=== PATIENT | female | born 1965 | race Caucasian/White ===

== ENCOUNTER → 2017-04-01 11:06 | Outpatient (CLI) | payer OTHER, SELFPAY ==
--- NOTE | 2017-04-01 11:09 | HPBI_ITS ---
MAMMOGRAPHY - BILATERAL SCREENING REASON FOR EXAM: Female, 51 years old. Routine annual screening examination. PERTINENT HISTORY: Non-contributory. TECHNIQUE: Digital bilateral breast frantz (3D mammographic acquisition) in the CC and MLO projections. 2-D mediolateral oblique (MLO) and craniocaudad (CC) views of both breasts were obtained. CAD: Full Field Digital Mammography with Computer Added Detection was performed. COMPARISON: Comparison is made with prior examination dated October 29, 2007. FINDINGS: Breast Composition: There are scattered areas of fibroglandular density. There are no dominant masses or suspicious calcifications. Stable bilateral benign appearing axillary lymph nodes. No other significant abnormalities are identified. There has been no significant change since the prior study. HPBI/SCREENING MAMM (CAD), BILAT IMPRESSION: Stable bilateral screening mammogram. Yearly follow-up mammogram recommended. (A) ASSESSMENT CATEGORY: BIRADS Category 2: Benign. A letter regarding these results will be sent to the patient by the facility within 30 days. Approximately 10% of breast cancers are not detected by mammography. A normal mammogram should not delay biopsy of a clinically suspicious abnormality. [id number] Electronically Signed: Ephraim Estrada MD at 12:37 EST Tel [phone], Service support ,
== END ==
PROVIDERS: Family Provider Family Medicine; PCP Family Medicine; Visit Provider Family Medicine
DX: Z12.31 Encounter for screening mammogram for malignant neoplasm of breast (principal)
CPT/HCPCS: 77063; 77067

== ENCOUNTER → 2017-08-01 15:48 | Outpatient (CLI) | payer OTHER, SELFPAY | PROVIDERS: Visit Provider Family Medicine | DX: J02.9 Acute pharyngitis, unspecified (principal) | CPT/HCPCS: 87070 ==

== ENCOUNTER → 2017-10-30 09:54 | Outpatient (CLI) | payer OTHER, SELFPAY ==
[2017-10-30 12:29] LABS: AST(SGOT) 15 U/L (15-37); Alanine Aminotransfer ALT/SGPT 25 U/L (13-56); Albumin, Serum 3.7 g/dL (3.2-5.0); Alkaline Phosphatase 94 U/L (45-117); Bilirubin, Direct 0.15 mg/dL (0.00-0.30); Cholesterol 152 mg/dL (200); Globulin 3.5 g/dL (2.2-4.2); High Density Lipoprotein 62 mg/dL; Protein, Total 7.2 g/dL (6.4-8.2); Triglycerides 112 mg/dL; Very Low Density Lipoprotein 22 mg/dL (5-40)
== END ==
PROVIDERS: Family Provider Family Medicine; PCP Family Medicine; Visit Provider Internal Medicine Cardiovascular Disease
DX: E78.5 Hyperlipidemia, unspecified (principal)
CPT/HCPCS: 36415; 80061; 80076

== ENCOUNTER → 2018-04-16 10:29 | Outpatient (CLI) | payer OTHER, SELFPAY ==
[2018-04-10 13:25] VITALS: BMI 32.6
[2018-04-16 13:05] LABS: AST(SGOT) 19 U/L (15-37); Alanine Aminotransfer ALT/SGPT 29 U/L (13-56); Albumin, Serum 3.7 g/dL (3.2-5.0); Alkaline Phosphatase 105 U/L (45-117); Bilirubin, Direct 0.13 mg/dL (0.00-0.30); Cholesterol 169 mg/dL (200); Globulin 3.4 g/dL (2.2-4.2); High Density Lipoprotein 70 mg/dL; Protein, Total 7.1 g/dL (6.4-8.2); Triglycerides 118 mg/dL; Very Low Density Lipoprotein 24 mg/dL (5-40)
== END ==
PROVIDERS: Family Provider Family Medicine; PCP Family Medicine; Referring Provider Internal Medicine Cardiovascular Disease; Visit Provider Internal Medicine Cardiovascular Disease
DX: E78.5 Hyperlipidemia, unspecified (principal)
CPT/HCPCS: 36415; 80061; 80076

== ENCOUNTER → 2018-08-21 | Outpatient (CLI) | payer OTHER, SELFPAY ==
[2018-04-10 13:25] VITALS: BMI 32.6
[2018-08-21 12:14] LABS: Absolute Lymphocyte Count 1.39 X10^3/ul (0.83-4.51); Absolute Neutrophil Count 2.6 X10^3/uL (2.0-7.7); Basophil# 0.02 X10^3/uL; Basophil% 0.4 % (0-1); Eosinophils% 2.2 % (0-5); Hemoglobin 12.7 g/dl (12.0-15.0); Lymphocyte # 1.39 X10^3/ul (4.0); Lymphocyte % 30.3 % (19-41); Mean Corp Hgb Conc 32.6 g/gl (32-36); Mean Corpuscular Hgb 28.9 pg (27.0-32.0); Mean Corpuscular Volume 88.8 fL (81-99); Mean Platelet Vol. 10.8 fl (6.2-12.0); Monocyte# 0.45 X10^3/uL; Monocyte% 9.8 % (0-10); Neutrophil # 2.62 X10^3/uL (2.7-7.7); Neutrophil % 57.3 % (47-70); Platelet Count 280 K/mm3 (150-450); RBC Distribution Width CV 13.2 % (11.6-14.6); RBC Distribution Width SD 42.5 fl (35.1-43.9); Red Blood Count 4.39 M/mm3 (4.2-5.4); White Blood Count 4.6 K/mm3 (4.4-11.0)
[2018-08-21 12:22] LABS: AST(SGOT) 20 U/L (15-37); Alanine Aminotransfer ALT/SGPT 25 U/L (13-56); Albumin, Serum 3.4 g/dL (3.2-5.0); Alkaline Phosphatase 98 U/L (45-117); Anion Gap 8 (5-15); BUN 11 mg/dL (7-18); BUN/Creat Ratio 13.9 RATIO (10-20); Bilirubin, Direct 0.17 mg/dL (0.00-0.30); Calcium,Total 8.9 mg/dL (8.5-10.1); Chloride 111 mmol/L (98-107); Cholesterol 158 mg/dL (200); Creatinine, Serum 0.79 mg/dL (0.55-1.02); EST Glomerular Filtration Rate 80 mL/min (>60); Est Glom Filt Rate - Afr Amer 97 mL/min (>60); Globulin 3.3 g/dL (2.2-4.2); Glucose 92 mg/dL (74-106); High Density Lipoprotein 72 mg/dL; Potassium 3.9 mmol/L (3.5-5.1); Protein, Total 6.7 g/dL (6.4-8.2); Sodium Level 145 mmol/L (136-145); Triglycerides 103 mg/dL; Very Low Density Lipoprotein 21 mg/dL (5-40)
[2018-08-21 12:31] LABS: POSITIVE COUNT NO; POSITIVE DIFFERENTIAL NO; POSITIVE MORPHOLOGY NO
== END | disposition home or self-care (01) ==
LOC: MTLAB 10:30
PROVIDERS: Family Provider Family Medicine; PCP Family Medicine; Referring Provider Family Medicine; Visit Provider Family Medicine
DX: I25.10 Atherosclerotic heart disease of native coronary artery without angina pectoris (principal); E78.5 Hyperlipidemia, unspecified
CPT/HCPCS: 36415; 80053; 80061; 82248; 85025

== ENCOUNTER → 2018-08-26 | Outpatient (CLI) | payer OTHER, SELFPAY ==
[2018-04-10 13:25] VITALS: BMI 32.6
[2018-08-26 13:01] LABS: Vitamin B12 687 pg/mL (211-911); Vitamin D,25 Hydroxy 19.2 ng/mL (29.95-100.01)
[2018-08-26 13:16] LABS: CPK Total, Creatine Kinase 332 U/L (26-192); Ferritin 27 ng/mL (8-252); Magnesium 2.3 mg/dL (1.6-2.6); Thyroid Stim Hormone (TSH) 1.14 uIU/mL (0.358-3.74)
== END | disposition home or self-care (01) ==
LOC: MFPLAB 10:32
PROVIDERS: Family Provider Family Medicine; PCP Family Medicine; Visit Provider Family Medicine
DX: R25.2 Cramp and spasm (principal); R53.83 Other fatigue
CPT/HCPCS: 36415; 82306; 82550; 82607; 82728; 83735; 84443

== ENCOUNTER → 2018-09-15 | Outpatient (CLI) | payer OTHER, SELFPAY ==
[2018-04-10 13:25] VITALS: BMI 32.6
[2018-09-15 11:28] LABS: ALB/GLOB Ratio 1.1 RATIO (0.9-2.4); AST(SGOT) 27 U/L (15-37); Alanine Aminotransfer ALT/SGPT 45 U/L (13-56); Albumin, Serum 3.5 g/dL (3.2-5.0); Alkaline Phosphatase 107 U/L (45-117); Anion Gap 6 (5-15); BUN 13 mg/dL (7-18); BUN/Creat Ratio 14.3 RATIO (10-20); Calcium,Total 9.1 mg/dL (8.5-10.1); Chloride 110 mmol/L (98-107); Cholesterol 262 mg/dL (200); Creatinine, Serum 0.91 mg/dL (0.55-1.02); EST Glomerular Filtration Rate 68 mL/min (>60); Est Glom Filt Rate - Afr Amer 83 mL/min (>60); Globulin 3.2 g/dL (2.2-4.2); Glucose 91 mg/dL (74-106); High Density Lipoprotein 61 mg/dL; Potassium 3.9 mmol/L (3.5-5.1); Protein, Total 6.7 g/dL (6.4-8.2); Sodium Level 144 mmol/L (136-145); Triglycerides 159 mg/dL; Very Low Density Lipoprotein 32 mg/dL (5-40)
== END | disposition home or self-care (01) ==
LOC: MTLAB 08:52
PROVIDERS: Family Medicine
DX: E78.5 Hyperlipidemia, unspecified (principal)
CPT/HCPCS: 36415; 80053; 80061

== ENCOUNTER → 2018-09-30 | Outpatient (CLI) | payer OTHER, SELFPAY ==
[2018-04-10 13:25] VITALS: BMI 32.6
[2018-09-30 12:26] LABS: CPK Total, Creatine Kinase 214 U/L (26-192)
== END | disposition home or self-care (01) ==
PROVIDERS: Family Medicine
DX: R74.8 Abnormal levels of other serum enzymes (principal)
CPT/HCPCS: 36415; 82550

== ENCOUNTER → 2018-11-29 10:36 | Outpatient (CLI) | payer OTHER, SELFPAY ==
[2018-11-20 11:11] VITALS: BMI 34.0
[2018-11-29 11:49] LABS: AST(SGOT) 16 U/L (15-37); Alanine Aminotransfer ALT/SGPT 22 U/L (13-56); Albumin, Serum 3.5 g/dL (3.2-5.0); Alkaline Phosphatase 102 U/L (45-117); Bilirubin, Direct 0.13 mg/dL (0.00-0.30); Cholesterol 183 mg/dL (200); Globulin 3.5 g/dL (2.2-4.2); High Density Lipoprotein 64 mg/dL; Triglycerides 164 mg/dL; Very Low Density Lipoprotein 33 mg/dL (5-40)
== END ==
PROVIDERS: Family Provider Family Medicine; PCP Family Medicine; Referring Provider Internal Medicine Cardiovascular Disease; Visit Provider Internal Medicine Cardiovascular Disease
DX: I25.10 Atherosclerotic heart disease of native coronary artery without angina pectoris (principal); E78.5 Hyperlipidemia, unspecified
CPT/HCPCS: 36415; 80061; 80076

== ENCOUNTER → 2019-06-05 08:03 | Outpatient (CLI) | payer OTHER, SELFPAY ==
[2019-06-04 09:30] VITALS: BMI 32.1
[2019-06-05 09:01] LABS: AST(SGOT) 19 U/L (15-37); Alanine Aminotransfer ALT/SGPT 25 U/L (13-56); Albumin, Serum 3.4 g/dL (3.2-5.0); Alkaline Phosphatase 84 U/L (45-117); Bilirubin, Direct 0.18 mg/dL (0.00-0.30); Cholesterol 187 mg/dL (200); Globulin 3.1 g/dL (2.2-4.2); High Density Lipoprotein 61 mg/dL; Protein, Total 6.5 g/dL (6.4-8.2); Triglycerides 135 mg/dL; Very Low Density Lipoprotein 27 mg/dL (5-40)
== END ==
PROVIDERS: PCP Family Medicine; Referring Provider Internal Medicine Cardiovascular Disease; Visit Provider Internal Medicine Cardiovascular Disease
DX: E78.00 Pure hypercholesterolemia, unspecified (principal); E78.5 Hyperlipidemia, unspecified
CPT/HCPCS: 36415; 80061; 80076

== ENCOUNTER → 2019-07-16 09:00 | Outpatient (CLI) | payer OTHER, SELFPAY ==
[2019-06-04 09:30] VITALS: BMI 32.1
[2019-07-16 10:03] LABS: ALB/GLOB Ratio 1.1 RATIO (0.9-2.4); AST(SGOT) 18 U/L (15-37); Alanine Aminotransfer ALT/SGPT 26 U/L (13-56); Albumin, Serum 3.5 g/dL (3.2-5.0); Alkaline Phosphatase 84 U/L (45-117); Anion Gap 7 (5-15); BUN 12 mg/dL (7-18); BUN/Creat Ratio 16.5 RATIO (10-20); CPK Total, Creatine Kinase 132 U/L (26-192); Calcium,Total 8.9 mg/dL (8.5-10.1); Chloride 110 mmol/L (98-107); Creatinine, Serum 0.73 mg/dL (0.55-1.02); EST Glomerular Filtration Rate 88 mL/min (>60); Est Glom Filt Rate - Afr Amer 107 mL/min (>60); Ferritin 16 ng/mL (8-252); Globulin 3.3 g/dL (2.2-4.2); Glucose 100 mg/dL (74-106); Magnesium 2.3 mg/dL (1.6-2.6); Potassium 4.1 mmol/L (3.5-5.1); Protein, Total 6.8 g/dL (6.4-8.2); Sodium Level 143 mmol/L (136-145)
[2019-07-16 10:13] LABS: Vitamin D,25 Hydroxy 51.9 ng/mL
== END ==
PROVIDERS: PCP Family Medicine; Referring Provider Family Medicine; Visit Provider Family Medicine
DX: R25.2 Cramp and spasm (principal); E55.9 Vitamin D deficiency, unspecified
CPT/HCPCS: 36415; 80053; 82306; 82550; 82728; 83735

== ENCOUNTER → 2019-07-23 14:49 | Outpatient (CLI) | payer OTHER, SELFPAY ==
[2019-06-04 09:30] VITALS: BMI 32.1
--- NOTE | 2019-07-23 14:51 | BI_ITS ---
MAMMOGRAPHY - BILATERAL SCREENING REASON FOR EXAM: Female, 53 years old. Routine annual screening examination. PERTINENT HISTORY: Non-contributory. TECHNIQUE: Digital bilateral breast deepak (3D mammographic acquisition) in the CC and MLO projections. 2-D mediolateral oblique (MLO) and craniocaudad (CC) views of both breasts were obtained. CAD: Full Field Digital Mammography with Computer Added Detection was performed. COMPARISON: Comparison is made with prior examination dated April 01, 2017. FINDINGS: Breast Composition: There are scattered areas of fibroglandular density. There are no dominant masses or suspicious calcifications. Stable benign-appearing bilateral axillary lymph nodes. No other significant abnormalities are identified. There has been no significant change since the prior study. BI/SCREEN MAMM (CAD) W/DEEPAK BILAT IMPRESSION: Stable bilateral screening mammogram. Yearly follow-up mammogram recommended. (A) ASSESSMENT CATEGORY: BIRADS Category 2: Benign. A letter regarding these results will be sent to the patient by the facility within 30 days. Approximately 10% of breast cancers are not detected by mammography. A normal mammogram should not delay biopsy of a clinically suspicious abnormality. [id number] Electronically Signed: Ephraim Estrada, at 10:55 EDT , Service support ,
== END ==
PROVIDERS: PCP Family Medicine; Referring Provider Family Medicine; Visit Provider Family Medicine
DX: Z12.31 Encounter for screening mammogram for malignant neoplasm of breast (principal)
CPT/HCPCS: 77063; 77067

== ENCOUNTER 2019-08-25 12:07 | Observation (INO) | payer OTHER, SELFPAY ==
[2019-06-04 09:30] VITALS: BMI 32.1
[2019-08-25] VITALS (11 sets, daily range): BP systolic 119–159; BP diastolic 76–99; PULSE 58–85; RESP 14–20; TEMP 36.3–36.8; O2SAT 97–99; BMI 33.3; BMI 32.7; BMI 33.4
--- NOTE | 2019-08-25 12:20 | EKG12_ITS ---
Test Reason : REPEAT Blood Pressure : / mmHG Vent. Rate : 053 BPM Atrial Rate : 053 BPM P-R Int : 172 ms QRS Dur : 084 ms QT Int : 434 ms P-R-T Axes : 028 000 028 degrees QTc Int : 407 ms Sinus bradycardia Otherwise normal ECG Confirmed by CHARISSE TELLO ([id number]), design editor CLIFF ARMAS ([id number]) on 09/01/2019 8:12:58 AM Referred By: Confirmed By:CHARSISE TELLO
--- NOTE | 2019-08-25 12:20 | RAD_ITS ---
STUDY: X-RAY CHEST REASON FOR EXAM: Female, 53 years old. Sudden onset CP this morning, back, jaw and arm pain too -- previous heart attack 5 years ago TECHNIQUE: Single AP portable view of the chest. COMPARISON: 11/19/2014 FINDINGS: EKG leads overlie the chest The lungs are clear and expanded. There is no demonstrated pleural abnormality. Normal size heart. Normal mediastinum and shaan. Normal visualized pulmonary arteries. Normal visualized aortic arch and descending thoracic aorta. Normal visualized thoracic spine. Normal visualized ribs, clavicles, and shoulders. There is no demonstrated abnormality of the visualized soft tissue structures of the upper abdomen. RAD/Chest 1 View (Portable) IMPRESSION: Normal x-ray examination of the chest. Electronically Signed: Jaguar Manrique MD at 12:42 EDT , Service support ,
--- NOTE | 2019-08-25 12:22 | ED.VIS.GEN ---
History of Present Illness Informant: Patient Onset: Today Narrative: Patient presents the emergency department for evaluation of chest pain. Patient states that she has had quite a stressful weekend and day. She states that her second son got moved out of the house. Her [id number] today. She carried 100 pounds of sugar to make her jam in from the car as well as 50 pounds of dog food. Shortly thereafter began to have pain midsternal going into her jaw on her arm. It is now abated after about 1 1-1/2 hours. 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 She is no longer on Coumadin therapy and takes aspirin. She is not on Plavix due to side effects that she experienced. <Shreyas Johnston - Last Filed: 08/25/19 13:45> <Dayron Scott - Last Filed: 08/25/19 16:21> Chief Complaint: Chest Pain Past Medical History Surgical History: - - recent plantar fascitis repair in 09/15; uteran oblation 2010. Smoking Status: Never smoker - Family History Maternal Family History: Family History (Last Reviewed 06/04/19 @ 09:31 by Gracie Huizar) Mother CAD (coronary artery disease) Father CAD (coronary artery disease) Family History: Reports: No pertinent history <Shreyas Johnston - Last Filed: 08/25/19 13:45> - Family History Maternal Family History: Family History (Last Reviewed 06/04/19 @ 09:31 by Gracie Huizar) Mother CAD (coronary artery disease) Father CAD (coronary artery disease) <Dayron Scott - Last Filed: 08/25/19 16:21> - Allergies and Home Meds Allergies/Adverse Reactions: Allergies rosuvastatin [From Crestor] Adverse Reaction (Intermediate, Verified 08/25/19 12:12) myalgias and fatigue codeine Adverse Reaction (Verified 08/25/19 12:12) Vomiting hydromorphone HCl [From Dilaudid] Adverse Reaction (Verified 08/25/19 12:12) Sudden severe vomiting morphine Adverse Reaction (Verified 08/25/19 12:12) Sudden Vomiting Primary Care Physician: Shreyas Parikh MD [STAFF PHYSICIAN] - As soon as possible Review of Systems General: Denies: Chills, Fever, Sweats Eyes: Denies: Visual changes - bilaterally, Diplopia ENT: Denies: Rhinorrhea, Sore throat Cardiovascular: Reports: Chest pain. Denies: Palpitations Respiratory: Denies: Dyspnea, Cough, Dyspnea on exertion Gastrointestinal: Denies: Abdominal pain, Nausea, Vomiting, Diarrhea, Melena, Hematochezia Genitourinary: Denies: Dysuria, Hematuria, Frequency Musculoskeletal: Denies: Back pain, Extremity Pain Skin: Denies: Rash, Wounds Neurological: Denies: Headache, Weakness, Numbness Psych: Reports: Depression, Anxiety. Denies: Suicidal thoughts, Suicidal ideations <Shreyas Johnston - Last Filed: 08/25/19 13:45> Physical Exam Vital Signs/Narrative: Vital Signs Temp Pulse Resp BP Pulse Ox 08/25/19 12:08 97.9 F 76 20 H 159/86 H 98 Inital Vital Signs reviewed: Yes General: Well nourished, Well developed, No Acute Distress Head: Normocephalic, Atraumatic Eyes: Perrl, EOMI ENT: Moist mucous membranes, No rhinorrhea Neck: Supple, Nontender Cardiovascular: Regular rate, Regular rhythm, No murmurs Respiratory: No distress, CTA bilaterally, Chest nontender Abdomen: Soft, Nontender, Nondistended, Normal bowel sounds Back: Nontender, Normal Inspection Extremities: Nontender, No edema Skin: Normal color, No rash Neurological: Alert, Oriented x3, Cranial nerves II-XII grossly intact, Normal Strength, Normal Sensation Psychological: Tearful <Shreyas Johnston - Last Filed: 08/25/19 13:45> Vital Signs/Narrative: Vital Signs Pulse Resp BP Pulse Ox 08/25/19 14:52 59 L 14 119/80 97 08/25/19 13:21 58 L 16 119/78 99 <Dayron Scott - Last Filed: 08/25/19 16:21> Diagnostic/Tx/Re-eval Clinical Impression(s) from Imaging Studies Chest X-Ray 08/25/19 12:20 IMPRESSION: Normal x-ray examination of the chest. Electronically Signed: Jaguar Manrique MD at 12:42 EDT , Service support , Laboratory Last Values WBC 5.1 K/mm3 (4.4-11.0) 08/25/19 12:15 RBC 4.30 M/mm3 (4.2-5.4) 08/25/19 12:15 Hgb 12.9 g/dL (12.0-15.0) 08/25/19 12:15 Hct 39.7 % (37-47) 08/25/19 12:15 MCV 92.3 fL (81-99) 08/25/19 12:15 MCH 30.0 pg (27.0-32.0) 08/25/19 12:15 MCHC 32.5 g/dL (32-36) 08/25/19 12:15 RDW Std Deviation 42.5 fl (35.1-43.9) 08/25/19 12:15 RDW Coeff of Karen 12.6 % (11.6-14.6) 08/25/19 12:15 Plt Count 293 K/mm3 (150-450) 08/25/19 12:15 MPV 10.6 fl (6.2-12.0) 08/25/19 12:15 Immature Gran % (Auto) 0.200 % (0.0-0.9) 08/25/19 12:15 Neut % (Auto) 54.5 % (47-70) 08/25/19 12:15 Lymph % (Auto) 34.1 % (19-41) 08/25/19 12:15 Lasalle % (Auto) 8.4 % (0-10) 08/25/19 12:15 Eos % (Auto) 2.2 % (0-5) 08/25/19 12:15 Baso % (Auto) 0.6 % (0-1) 08/25/19 12:15 Absolute Neuts (auto) 2.8 X10^3/uL (2.0-7.7) 08/25/19 12:15 Absolute Lymphs (auto) 1.74 X10^3/uL (0.83-4.51) 08/25/19 12:15 Nucleated RBC % 0 % (0-5) 08/25/19 12:15 Sodium 143 mmol/L (136-145) 08/25/19 12:15 Potassium 3.8 mmol/L (3.5-5.1) 08/25/19 12:15 Chloride 110 mmol/L (98-107) H 08/25/19 12:15 Carbon Dioxide 25.0 mmol/L (21.0-32.0) 08/25/19 12:15 Anion Gap 8 (5-15) 08/25/19 12:15 BUN 11 mg/dL (7-18) 08/25/19 12:15 Creatinine 0.78 mg/dL (0.55-1.02) 08/25/19 12:15 Estim Creat Clear Calc 79.25 ml/min 08/25/19 12:15 Est GFR (MDRD) Af Amer 98 mL/min (>60) 08/25/19 12:15 Est GFR (MDRD) Non-Af 81 mL/min (>60) 08/25/19 12:15 BUN/Creatinine Ratio 14.0 RATIO (10-20) 08/25/19 12:15 Glucose 101 mg/dL (74-106) 08/25/19 12:15 Calcium 8.9 mg/dL (8.5-10.1) 08/25/19 12:15 Troponin I < 0.015 ng/mL (<0.045) 08/25/19 12:15 - EKG Initial EKG Interpretation: Sinus Rhythm - EKG demonstrates a sinus rhythm at a rate of 75 without ectopy. There are no concerning features of ACS - Medical Decision Making Patient pain-free upon arrival. Chest x-ray is negative. First troponin is negative and EKG is a normal sinus rhythm. I spoke with Dr. Arroyow is on-call for Dr. Parikh. We will plan for a delta troponin and if negative she may be discharged home to follow-up in the office. I did have social work see her given the deal of life stressors. <Shreyas Johnston - Last Filed: 08/25/19 13:45> - Medical Decision Making Took over care of this patient. Her repeat EKG is normal with no signs of acute ischemia, however her delta troponin returned abnormal. The first value was 0 and the second is over 0.1. Given that, she likely was having unstable angina earlier. She remains pain-free at this time. Discussed with cardiology who agrees with admission for evaluation for catheterization in the morning. Recommended Brilinta, Lovenox, aspirin given. <Dayron Scott - Last Filed: 08/25/19 16:21> ED Disposition <Shreyas Johnston - Last Filed: 08/25/19 13:45> <Dayron Scott - Last Filed: 08/25/19 16:21> - Plan for ED Patient: Disposition: Acute Care Hospital [facility] Diagnosis: Unstable angina Referrals: Shreyas Parikh MD [STAFF PHYSICIAN] - As soon as possible
[2019-08-25 12:32] LABS: Absolute Lymphocyte Count 1.74 X10^3/uL (0.83-4.51); Absolute Neutrophil Count 2.8 X10^3/uL (2.0-7.7); Basophil# 0.03 X10^3/uL; Basophil% 0.6 % (0-1); Eosinophil# 0.11 X10^3/uL; Eosinophils% 2.2 % (0-5); Hematocrit 39.7 % (37-47); Hemoglobin 12.9 g/dL (12.0-15.0); Lymphocyte # 1.74 X10^3/ul (4.0); Lymphocyte % 34.1 % (19-41); Mean Corp Hgb Conc 32.5 g/dL (32-36); Mean Corpuscular Volume 92.3 fL (81-99); Mean Platelet Vol. 10.6 fl (6.2-12.0); Monocyte# 0.43 X10^3/uL; Monocyte% 8.4 % (0-10); NRBC Flagged by Analyzer 0 % (0-5); Neutrophil # 2.78 X10^3/uL (2.7-7.7); Neutrophil % 54.5 % (47-70); Platelet Count 293 K/mm3 (150-450); RBC Distribution Width CV 12.6 % (11.6-14.6); RBC Distribution Width SD 42.5 fl (35.1-43.9); White Blood Count 5.1 K/mm3 (4.4-11.0)
[2019-08-25 12:50] LABS: Anion Gap 8 (5-15); BUN 11 mg/dL (7-18); Calcium,Total 8.9 mg/dL (8.5-10.1); Chloride 110 mmol/L (98-107); Creatinine, Serum 0.78 mg/dL (0.55-1.02); EST Glomerular Filtration Rate 81 mL/min (>60); Est Glom Filt Rate - Afr Amer 98 mL/min (>60); Estimated Creatinine Clearance 79.25 ml/min; Glucose 101 mg/dL (74-106); Potassium 3.8 mmol/L (3.5-5.1); Sodium Level 143 mmol/L (136-145)
--- NOTE | 2019-08-25 13:44 | EKG12_ITS ---
Test Reason : Blood Pressure : / mmHG Vent. Rate : 075 BPM Atrial Rate : 075 BPM P-R Int : 174 ms QRS Dur : 080 ms QT Int : 366 ms P-R-T Axes : 039 015 025 degrees QTc Int : 408 ms Normal sinus rhythm Normal ECG Confirmed by CHARISSE TELLO ([id number]), editor & co founder CLIFF ARMAS ([id number]) on 09/01/2019 8:15:12 AM Referred By: Confirmed By:CHARISSE TELLO
--- NOTE | 2019-08-25 13:50 | CM.ED ---
Social Work Consult: Anxiety Informant: Dr. Johnston Met with patient in room. Introduced self as well as social sciences chair role. Patient states I feel so silly. This social sciences chair normalizing patient emotions/feelings. Patient agreeable to speaking with this social sciences chair. Patient states to be under a lot of stress lately. Patient noyipo-[id number] this morning, patient son recently moved out of the home due to getting . Patient states to need to cry it out. Patient states to be fine and to utilize deep breathing and talking with sisters when feeling overwhelmed or anxious. Patient denies any suicidal thoughts/plans/intents. Patient states to have support from spouse and sister. Patient states to have a history of a heart attack in 2015 and wanted to make sure the pain in patient chest was not another attack. This social sciences chair again normalizing patient emotions/thoughts. Patient not wanting to elaborate further with this social sciences chair but pleasant and engaged in assessment. Patient thanking this social sciences chair and states no concerns on return to home. Updated Dr. Johnston on assessment. Demond Monroe MSW, RUDDY
--- NOTE | 2019-08-25 16:13 | NURSING ---
HOSPITALIST PAGED DR MENDIOLA PAGED
--- NOTE | 2019-08-25 16:16 | NURSING ---
DR STONE FOR DR PATEL
--- NOTE | 2019-08-25 16:17 | NURSING ---
DR STONE FOR DR PATEL
--- NOTE | 2019-08-25 16:22 | NURSING ---
106 CP UNSTABLE ANGINA
--- NOTE | 2019-08-25 16:30 | NURSING ---
DR MENDIOLA IN ROOM
--- NOTE | 2019-08-25 16:51 | CON.PCM_ITS ---
Problem List (1) Unstable angina Status: Acute (2) CAD in [place] artery Status: Acute (3) Hyperlipidemia Status: Chronic (4) DVT (deep venous thrombosis) Status: Chronic Qualifiers: Laterality: right Qualified Code(s): I82.401 - Acute embolism and thrombosis of unspecified deep veins of right lower extremity Reason for Consult Date of Consultation: 08/25/19 History of Present Illness: The patient is a 53 year old white female with a past medical history of CAD, remote non-ST segment elevation MT, hyperlipidemia, DVT, who presents for concerns of unstable angina and subsequent abnormal troponin I levels. She states she has been well until today. Today after caring a significant amount of weight in the forms of food supplies as well as dog food supplies she noted that she had some centralized substernal chest discomfort millimeters jaw discomfort. She felt somewhat short of breath. She did not have any nausea or emesis. She is not convinced she became diaphoretic. There was no loss of consciousness. She also notes that today she has been feeling a significant amount of stress . She notes that she had a son that was recently which is still an ongoing emotional issue for her. She also found out today that her jdmzro-[id number] earlier today. Based upon her ongoing issues she presented to the emergency department for further evaluation. There she states that without any additional care her symptoms appear to improve. She was undergoing evaluation and had an initial troponin I level which was negative and an ECG that demonstrated sinus rhythm with no acute ECG changes. She was undergoing a plan for a delta troponin I level and delta ECG. If these were negative the hope was that she was to be released home for continued outpatient follow-up. However her delta troponin I level was elevated and in the indeterminate range. Her delta ECG continue to demonstrate sinus rhythm with no acute changes. Thus she was recommended for further inpatient evaluation and care. She states otherwise she has been doing well. She has not described any history of orthopnea or PND or peripheral pitting edema. There has been no near syncope or syncope. She does state in the past that she did not tolerate completed all/Plavix well. She states she had gastrointestinal side effects from it. [] Past Medical History Allergies/Adverse Reactions: Allergies rosuvastatin [From Crestor] Adverse Reaction (Intermediate, Verified 08/25/19 12:12) myalgias and fatigue codeine Adverse Reaction (Verified 08/25/19 12:12) Vomiting hydromorphone HCl [From Dilaudid] Adverse Reaction (Verified 08/25/19 12:12) Sudden severe vomiting morphine Adverse Reaction (Verified 08/25/19 12:12) Sudden Vomiting Home Medications: Ambulatory Orders Medication Instructions Recorded cholecalciferol (vitamin D3) 1,250 50,000 unit PO MO 11/20/18 mcg (50,000 unit) capsule Aspirin [Aspirin, Baby] 81 mg PO DAILY@0800 08/25/19 Calcium Carbonate 1 tab PO DAILY 08/25/19 Pravastatin Sodium 40 mg PO DAILY 08/25/19 Past Medical History (Chronic Problems): Chronic Problems (Last Reviewed 06/04/19 @ 09:31 by Gracie Huizar) Atherosclerotic heart disease of [place] coronary artery without angina pectoris (Chronic) non obstructive CAD in very small dx Hyperlipidemia (Chronic) History of left heart catheterization (Chronic ~11/22/14) DVT (deep venous thrombosis) (Chronic ~11/2014) Surgical History: - - recent plantar fascitis repair in 09/15; uteran oblation 2010. - *Family History Maternal Family History: Family History (Last Reviewed 06/04/19 @ 09:31 by Gracie Huizar) Mother CAD (coronary artery disease) Father CAD (coronary artery disease) History Items: No pertinent history Smoking Status: Never smoker Alcohol: None Drugs: None Review of Systems - Review of Systems General: Denies: Fever, Night Sweats, Fatigue Cardiovascular: Reports: Chest Discomfort, Shortness of Breath. Denies: Orthopnea, PND, Peripheral Edema, Palpitations, Lightheadedness, Dizziness, Near Syncope, Syncope Respiratory: Denies: Cough, Sputum Production, Hemoptysis Gastrointestinal: Denies: Hematemesis, Hematochezia, Melena Genitourinary: Denies: Dysuria, Hematuria Skin: Denies: Rash Subjectve: This is a 53-year-old white female who appears to be resting comfortably at the moment in no acute distress. Objective: Vital Signs Temp Pulse Resp BP Pulse Ox 97.9 F 68 15 143/76 H 97 08/25/19 12:08 08/25/19 16:14 08/25/19 16:14 08/25/19 16:14 08/25/19 16:14 Oxygen Delivery Method Room Air Weight: 212 lb 15.465 oz Body Mass Index (BMI) 33.3 General: Awake, Alert, Oriented x 3, Cooperative, No Acute Distress HEENT: Atraumatic, Normocephalic, PERRL, EOMI, Sclera Non Icteric Oral: Moist Mucosa Neck: Supple, Good ROM, No JVD Lungs: Clear to auscultation Cardiovascular: Regular Rhythm, Normal S1, Normal S2 Vascular: No Carotid Bruits Abdomen: Bowel Sounds Present, Soft, Non Tender Extremities: No edema Neurological: No Focal Motor or Sensory Deficit Psych/Mental Status: Appropriate 08/25/19 12:15: WBC 5.1, RBC 4.30, Hgb 12.9, Hct 39.7, MCV 92.3, MCH 30.0, MCHC 32.5, Plt Count 293, MPV 10.6, Immature Gran % (Auto) 0.200, Neut % (Auto) 54.5, Lymph % (Auto) 34.1, Grand % (Auto) 8.4, Eos % (Auto) 2.2, Baso % (Auto) 0.6, Absolute Neuts (auto) 2.8, Nucleated RBC % 0 08/25/19 12:15: Sodium 143, Potassium 3.8, Chloride 110 H, Carbon Dioxide 25.0, Anion Gap 8, BUN 11, Creatinine 0.78, Est GFR (MDRD) Af Amer 98, Est GFR (MDRD) Non-Af 81, BUN/Creatinine Ratio 14.0, Glucose 101, Calcium 8.9, Troponin I < 0.015 08/25/19 15:20: Troponin I 0.109 H Rhythm: Sinus rhythm EKG: Sinus rhythm; no acute ECG changes ECHO: 11-20-2014 Interpretation Summary The estimated ejection fraction is 65 %. Normal diastology for age. Mild (1+) tricuspid valve insufficiency. Right ventricular systolic pressure estimated to be 26 mmHg. There is no comparison study available. Cardiac Cath: 11-22-2014 CONCLUSIONS: 1. Nonobstructive coronary artery disease in a very small diagonal, mid to distal diagonal branch. This is most likely the patient's culprit lesion. This appears to be too small for intervention. I would recommend medical management at this time with baby aspirin. She will be loaded with 300 mg of Plavix and have 75 mg p.o. daily for 1 year's time. In addition, I would recommend switching her nitro paste, Imdur 30 mg p.o. daily and continue her beta-maria m 2. Hyperlipidemia: The patient requires aggressive LDL reduction. She has been started on statin therapy. Recommend repeating in 6-8 weeks' time. 3. 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 4. The patient tolerated the procedure well, no complications. CXR: Preliminary evaluation: No acute cardiopulmonary disease process appreciated; please see official report Assessment/Plan 1. Unstable angina pectoris The patient presents with symptoms concerning for unstable angina pectoris and an indeterminate troponin I level. The patient's symptoms occurred after her physical stress, which she states is not unusual for her, however she also underwent significant emotional stress as she described based upon concerns of her son's recent wedding and learning today of her qgskye-iw-viy's . At the present time she appears to be resting comfortably. She is going to be placed in the PCU under the care of internal medicine. She will have follow-up cardiac enzymes and ECGs. She will be requested to have an echocardiogram to evaluate her left ventricular wall motion and systolic function. She may need to be considered for reevaluation in the cardiac catheterization laboratory based upon her symptoms and her cardiac enzyme changes for progression of underlying CAD. In the meantime based upon concerns of her emotional stress component she will need to be monitored for any evidence of the development of a stress-induced cardiomyopathy/Takotsobu syndrome. Thus far there is been no other noncardiovascular condition noted to explain her symptoms or her cardiac enzymes. She will continue medical therapy in the interim with aspirin, antiplatelet therapy with Brilinta as she has been intolerant to clopidogrel/Plavix, anticoagulant therapy as deemed appropriate, as well as other agents such as nitrates, beta-blockers, etc. 2. CAD She does have an element of underlying CAD. In the past she was to be treated with risk factor modification medical therapy. It was not felt her previous finding was amenable to revascularization therapy. She will continue evaluation care as noted above. 3. Hyperlipidemia She will continue risk factor modification medical therapy as deemed appropriate. 4. DVT She does have a history of DVT. She has been treated in the past with anticoagulant therapy. Comment: The patient's case has been discussed and reviewed with the [facility] emergency department physicians and Dr. Mccray of the [facility] staff.
[2019-08-25] MEDS: Aspirin 81 MG TAB.CHEW 162 MG PO (17:00)
[2019-08-25] MEDS: TICAGRELOR 90 MG TABLET 180 MG PO (17:00)
[2019-08-25] MEDS: Enoxaparin 100 MG/ML Syringe SC (17:01)
--- NOTE | 2019-08-25 17:12 | EKG12_ITS ---
Test Reason : CP ADMISSION Blood Pressure : / mmHG Vent. Rate : 056 BPM Atrial Rate : 056 BPM P-R Int : 178 ms QRS Dur : 088 ms QT Int : 424 ms P-R-T Axes : 026 -08 024 degrees QTc Int : 409 ms Sinus bradycardia Otherwise normal ECG When compared with ECG of 25-AUG-2019 15:19, MANUAL COMPARISON REQUIRED, DATA IS UNCONFIRMED Confirmed by CHARISSE TELLO ([id number]), manager editorial CLIFF ARMAS ([id number]) on 09/01/2019 11:26:06 AM Referred By: CHASE Confirmed By:CHARISSE TELLO
--- NOTE | 2019-08-25 17:15 | PCM.HP.STD ---
<Zoraida Gibbs - Last Filed: 08/25/19 17:25> Problem List (1) Unstable angina Status: Acute (2) CAD in [place] artery Status: Chronic (3) Old myocardial infarction Status: Acute (4) Atherosclerotic heart disease of [place] coronary artery without angina pectoris Status: Chronic Comment: non obstructive CAD in very small dx (5) Hyperlipidemia Status: Chronic (6) History of left heart catheterization Status: Chronic (7) DVT (deep venous thrombosis) Status: Chronic Qualifiers: Laterality: right Qualified Code(s): I82.401 - Acute embolism and thrombosis of unspecified deep veins of right lower extremity History of Present Illness Date of Admission: 08/25/19 Chief Complaint: Chest pain. The patient is a 53 year old F who presents to the emergency room due to chest pain. Patient reports 30-minute episode of chest pressure and heaviness which was associated with exertion. She reports pain radiating down her left arm and into her jaw. She denies nausea, diaphoresis. Reports mild shortness of breath. She did not take any medication and her pain was relieved with rest. She denies other recent history of chest pain. Patient does note she has had increased stress and anxiety related to family issues. She has a past medical history of CAD, hypertension, hyperlipidemia, history of DVT. Past Medical History Past Medical History (Chronic Problems): Chronic Problems (Last Reviewed 06/04/19 @ 09:31 by Gracie Huizar) CAD in [place] artery (Chronic) Atherosclerotic heart disease of [place] coronary artery without angina pectoris (Chronic) non obstructive CAD in very small dx Hyperlipidemia (Chronic) History of left heart catheterization (Chronic ~11/22/14) DVT (deep venous thrombosis) (Chronic ~11/2014) Medical History: Medical History (Last Reviewed 06/04/19 @ 09:31 by Gracie Huizar) Old myocardial infarction (Acute) I25.2 Atherosclerotic heart disease of [place] coronary artery without angina pectoris (Chronic) I25.10 non obstructive CAD in very small dx Hyperlipidemia (Chronic) E78.5 DVT (deep venous thrombosis) (Chronic) Onset Date: ~11/2014 Non-STEMI (non-ST elevated myocardial infarction) I21.4 Allergies rosuvastatin [From Crestor] Adverse Reaction (Intermediate, Verified 08/25/19 12:12) myalgias and fatigue codeine Adverse Reaction (Verified 08/25/19 12:12) Vomiting hydromorphone HCl [From Dilaudid] Adverse Reaction (Verified 08/25/19 12:12) Sudden severe vomiting morphine Adverse Reaction (Verified 08/25/19 12:12) Sudden Vomiting Home Medications: Ambulatory Orders Medication Instructions Recorded cholecalciferol (vitamin D3) 1,250 50,000 unit PO MO 11/20/18 mcg (50,000 unit) capsule Aspirin [Aspirin, Baby] 81 mg PO QHS 08/25/19 Calcium Carbonate 1 tab PO DAILY 08/25/19 Pravastatin Sodium 40 mg PO QHS 08/25/19 Surgical History: Surgical History (Last Reviewed 08/25/19 @ 17:20 by JAQUELINE Domínguez) History of left heart catheterization (Chronic) Onset Date: ~11/22/14 Z98.890 History of endometrial ablation Z98.890 History of tubal ligation Z98.51 plantar fasciitis surgey Surgical History: - - Plantar fascitis repair in 09/15; uteran ablation 2010. Psychiatric History: Anxiety EQUIPMENT TECH History: No pertinent EQUIPMENT TECH history Lives: Spouse/ Significant Other Smoking Status: Never smoker Alcohol: None Drugs: None - *Family History Maternal Family History: Family History (Last Reviewed 06/04/19 @ 09:31 by Gracie Huizar) Mother CAD (coronary artery disease) Father CAD (coronary artery disease) History Items: Heart Disease Paternal Family History: Family History (Last Reviewed 06/04/19 @ 09:31 by Gracie Huizar) Mother CAD (coronary artery disease) Father CAD (coronary artery disease) History Items: Heart Disease Review of Systems Constitutional: Denies: Chills, Fever, Weight Change HEENT: Denies: Head Aches, Sinus Congestion, Sinus Drainage Cardiovascular: Reports: Chest Pain Respiratory: Denies: Cough, Shortness of breath at rest, Sputum production Gastrointestinal: Denies: Abdominal Pain, Nausea, Vomiting Genitourinary: Denies: Dysuria Musculoskeletal: Denies: Joint Pain, Joint Tenderness Skin: Denies: Rash, Wounds Neurological: Denies: Numbness, Tingling, Focal weakness Psychiatric: Reports: Anxiety Hematologic/ Lymphatic: Denies: Easy Bruising, Easy Bleeding VTE Information - Inpt Only VTE Present on Admission: No VTE Mechan Device Prophylaxis: None VTE Pharm Prophylaxis ordered?: Yes Patient Problems: Active and Suspected Problems (Last Reviewed 06/04/19 @ 09:31 by Gracie Huizar) Unstable angina (Acute) - Physical Exam Vitals/I&O's: Vital Signs Temp Pulse Resp BP Pulse Ox 98 F 61 16 147/96 H 99 08/25/19 17:12 08/25/19 17:12 08/25/19 17:12 08/25/19 17:12 08/25/19 17:12 Oxygen Delivery Method Room Air Weight: 212 lb 15.465 oz Body Mass Index (BMI) 33.3 General: Alert, Oriented x3, Cooperative HEENT: Atraumatic, PERRLA, EOMI, Normocephalic Neck: Supple, No JVD, Negative Carotid Bruits Lungs: Clear to auscultation, Normal air movement Cardiovascular: Regular rate, No murmurs Abdomen: Bowel Sounds Present, Soft, Non Tender Extremities: No clubbing, No cyanosis, No edema, Capillary Refill Less than 3 Seconds Skin: No rashes, No breakdown Musculoskeletal: No Tenderness to Palpation of Joints or Extremities Neurological: Cranial nerves II-XII grossly intact, Neuro grossly intact Psych/Mental Status: Normal Affect, Appropriate Laboratory Results 08/25/19 12:15: WBC 5.1, RBC 4.30, Hgb 12.9, Hct 39.7, MCV 92.3, MCH 30.0, MCHC 32.5, RDW Std Deviation 42.5, RDW Coeff of Karen 12.6, Plt Count 293, MPV 10.6, Immature Gran % (Auto) 0.200, Neut % (Auto) 54.5, Lymph % (Auto) 34.1, [place] % (Auto) 8.4, Eos % (Auto) 2.2, Baso % (Auto) 0.6, Absolute Neuts (auto) 2.8, Absolute Lymphs (auto) 1.74, Nucleated RBC % 0 08/25/19 12:15: Sodium 143, Potassium 3.8, Chloride 110 H, Carbon Dioxide 25.0, Anion Gap 8, BUN 11, Creatinine 0.78, Estim Creat Clear Calc 79.25, Est GFR (MDRD) Af Amer 98, Est GFR (MDRD) Non-Af 81, BUN/Creatinine Ratio 14.0, Glucose 101, Calcium 8.9, Troponin I < 0.015 08/25/19 15:20: Troponin I 0.109 H Current Medications Acetaminophen (Tylenol) 650 mg PO Q6H PRN PRN PRN Reason: Pain Score 1-10/Temp > 100.7 F Aspirin (Aspirin, Baby) 81 mg PO DAILY@0800 [facility] Carvedilol (Coreg) 3.125 mg PO BID [facility] Enoxaparin Sodium (Lovenox) 100 mg SC Q12 [facility] Morphine Sulfate () 2 mg IV Q3H PRN PRN PRN Reason: Pain Score 6-10/10 Nitroglycerin (Nitrostat) 0.4 mg SUBLINGUAL Q5M PRN PRN Reason: CARDIAC/CHEST PAIN Ondansetron HCl (Zofran) 4 mg IV Q8H PRN PRN PRN Reason: NAUSEA/VOMITING Pravastatin Sodium (Pravachol) 40 mg PO DAILY [facility] Assessment/Plan All Active Problems (Last Reviewed 06/04/19 @ 09:31 by Gracie Huizar) Unstable angina (Acute) Old myocardial infarction (Acute) Chest pain (Resolved) 1. Chest pain with elevated troponin, history of CAD-EKG without acute changes. Initial troponin 0.109. Cardiology consulted. Patient follows with Dr. Parikh. Trend enzymes. Continue aspirin, statin, therapeutic Lovenox. Patient's prior cardiac catheterization in 2014 following non-STEMI demonstrated nonobstructive coronary artery disease in a small diagonal mid to distal branch. Not amendable to intervention. Medical management was recommended at that time. 2. Hypertension- not on regimen, monitor BP. 3. Hyperlipidemia- continue statin. FLP in a.m. 4. History of DVT-provoked following plantar fasciitis surgery. DVT prophylaxis-Lovenox subcu This patient was seen by JAQUELINE Domínguez under the supervision of Dr. Mccray. <Liza Mccray - Last Filed: 08/25/19 20:46> History of Present Illness The patient is a 53 year old F [] Past Medical History Medical History: Medical History (Last Reviewed 06/04/19 @ 09:31 by Gracie Huizar) Old myocardial infarction (Acute) I25.2 Atherosclerotic heart disease of [place] coronary artery without angina pectoris (Chronic) I25.10 non obstructive CAD in very small dx Hyperlipidemia (Chronic) E78.5 DVT (deep venous thrombosis) (Chronic) Onset Date: ~11/2014 Non-STEMI (non-ST elevated myocardial infarction) I21.4 Allergies rosuvastatin [From Crestor] Adverse Reaction (Intermediate, Verified 08/25/19 12:12) myalgias and fatigue codeine Adverse Reaction (Verified 08/25/19 12:12) Vomiting hydromorphone HCl [From Dilaudid] Adverse Reaction (Verified 08/25/19 12:12) Sudden severe vomiting morphine Adverse Reaction (Verified 08/25/19 12:12) Sudden Vomiting Surgical History: Surgical History (Last Reviewed 08/25/19 @ 17:20 by Zoraida Gibbs NP-C) History of left heart catheterization (Chronic) Onset Date: ~11/22/14 Z98.890 History of endometrial ablation Z98.890 History of tubal ligation Z98.51 plantar fasciitis surgey - *Family History Maternal Family History: Family History (Last Reviewed 06/04/19 @ 09:31 by Gracie Huizar) Mother CAD (coronary artery disease) Father CAD (coronary artery disease) Paternal Family History: Family History (Last Reviewed 06/04/19 @ 09:31 by Gracie Huizar) Mother CAD (coronary artery disease) Father CAD (coronary artery disease) - Physical Exam Vitals/I&O's: Vital Signs Temp Pulse Resp BP Pulse Ox 98 F 77 16 147/96 H 99 08/25/19 17:12 08/25/19 18:02 08/25/19 17:12 08/25/19 17:12 08/25/19 17:12 Oxygen Delivery Method Room Air Weight: 94.7 kg Body Mass Index (BMI) 32.7 Laboratory Results 08/25/19 12:15: WBC 5.1, RBC 4.30, Hgb 12.9, Hct 39.7, MCV 92.3, MCH 30.0, MCHC 32.5, RDW Std Deviation 42.5, RDW Coeff of Karen 12.6, Plt Count 293, MPV 10.6, Immature Gran % (Auto) 0.200, Neut % (Auto) 54.5, Lymph % (Auto) 34.1, [place] % (Auto) 8.4, Eos % (Auto) 2.2, Baso % (Auto) 0.6, Absolute Neuts (auto) 2.8, Absolute Lymphs (auto) 1.74, Nucleated RBC % 0 08/25/19 12:15: Sodium 143, Potassium 3.8, Chloride 110 H, Carbon Dioxide 25.0, Anion Gap 8, BUN 11, Creatinine 0.78, Estim Creat Clear Calc 79.25, Est GFR (MDRD) Af Amer 98, Est GFR (MDRD) Non-Af 81, BUN/Creatinine Ratio 14.0, Glucose 101, Calcium 8.9, Troponin I < 0.015 08/25/19 12:15: Hemoglobin A1c 5.5 08/25/19 15:20: Troponin I 0.109 H Current Medications Acetaminophen (Tylenol) 650 mg PO Q6H PRN PRN PRN Reason: Pain Score 1-10/Temp > 100.7 F Aspirin (Aspirin, Baby) 81 mg PO DAILY@0800 [facility] Carvedilol (Coreg) 3.125 mg PO BID [facility] Enoxaparin Sodium (Lovenox) 100 mg SC Q12@0600,1800 [facility] Sodium Chloride () 250 mls @ 15 mls/hr IV .[id number] PRN PRN Reason: Saline Flush Sodium Chloride () 250 mls @ 15 mls/hr IV .[id number] PRN PRN Reason: Additional IVPB Infusion Morphine Sulfate () 2 mg IV Q3H PRN PRN PRN Reason: Pain Score 6-10/10 Nitroglycerin (Nitrostat) 0.4 mg SUBLINGUAL Q5M PRN PRN Reason: CARDIAC/CHEST PAIN Ondansetron HCl (Zofran) 4 mg IV Q8H PRN PRN PRN Reason: NAUSEA/VOMITING Pravastatin Sodium (Pravachol) 40 mg PO DAILY@2200 [facility] Sodium Chloride () 10 - 40 ml IV UD PRN PRN Reason: SALINE FLUSH Assessment/Plan This patient was seen in conjunction with Zoraida Gibbs NP. I have independently interviewed and examined the patient and reviewed pertinent historical, laboratory, and other data. Please refer to her note for patient's presentation, findings, and recommendations. 53-year-old female with past medical history of CAD status post cardiac cath in 2014 with disease in the small diagonal artery who comes in with complaints of chest pain that started the day of admission. Patient describes chest pressure, worse with exertion, radiates to her left arm and into her jaw. Denies any nausea or diaphoresis. Admits to shortness of breath. Vitals were reviewed -stable Physical Exam: Gen: Comfortable, not pale, not jaundiced, alert oriented x3 CVS:HS I +II, regular, no murmurs RESP: CTA GI: BS present and normal, nontender, no palpable organs EXT:No edema Labs reviewed: ASSESSMENT: 1. Acute non-STEMI 2. Hypertension, uncontrolled 3. Hyperlipidemia 4. History of DVT, off anticoagulants 5. Obesity Meds reviewed Plan: Cardiology consulted from ED Continue on Lovenox Continue on pravastatin, Brilinta, aspirin 2D echo Start on carvedilol Inpatient E&M: 11888 Init Hosp L3
[2019-08-25 18:11] LABS: Hemoglobin A1c 5.5 % (3.8-5.6)
--- NOTE | 2019-08-25 20:45 | ECHOD_ITS ---
Reason For Study: Chest Pain Procedure This was a 2D Doppler, Color Flow transthoracic echocardiogram. Exam performed portable in patient room. Left Ventricle Normal size and thickness. The estimated ejection fraction is 65 %. Stage 1 diastolic dysfunction. No regional wall motion abnormalities noted. Right Ventricle Normal size and thickness. Normal systolic function. Atria Normal left atrium. Normal right atrium. Normal atrial septum. Mitral Valve The mitral valve is structurally normal. No prolapse or stenosis seen. Tricuspid Valve Normal tricuspid valve. Trivial tricuspid valve insufficiency. Right ventricular systolic pressure estimated to be 23 mmHg. Aortic Valve Normal aortic valve. Trisinus/trileaflet aortic valve. Pulmonic Valve Normal pulmonic valve. Great Vessels Normal aortic root. Normal arch. Normal inferior vena cava. Inferior vena cava collapse with sniff. Pericardium/Pleural No pericardial effusion. MMode/2D Measurements & Calculations LVIDd: 4.2 cm IVSd: 1.4 cm LA dimension: 3.3 cm LVIDs: 2.7 cm LVPWd: 1.2 cm FS: 36.0 % LAV(MOD-bp): 32.5 ml LA A4 area: 13.0 cm2 RA A4 area: 9.8 cm2 LAV(MOD-bp) Indexed: 15.9 ml/m2 LAV(MOD-sp2): 34.2 ml LAV(MOD-sp4): 29.4 ml Time Measurements MV dec time: 0.30 sec Doppler Measurements & Calculations MV E max elpidio: 46.1 cm/sec Lat Peak E' Elpidio: 7.4 cm/sec Med Peak E' Elpidio: 7.2 cm/sec MV A max elpidio: 60.8 cm/sec E/E' lat: 6.2 E/E' med: 6.4 MV E/A: 0.76 MV V2 max: 83.6 cm/sec MV P1/2t max elpidio: 63.1 cm/sec Ao V2 max: 106.5 cm/sec MV max P.8 mmHg MV P1/2t: 104.6 msec Ao max P.5 mmHg MV V2 mean: 42.8 cm/sec MV dec slope: 176.6 cm/sec2 Ao V2 mean: 73.5 cm/sec MV mean P.85 mmHg MVA(P1/2t): 2.1 cm2 Ao mean P.4 mmHg MV V2 VTI: 23.8 cm Ao V2 VTI: 22.0 cm LV V1 max: 98.5 cm/sec PA V2 max: 92.3 cm/sec TR max elpidio: 214.3 cm/sec LV V1 max P.9 mmHg TR max P.4 mmHg LV V1 mean P.1 mmHg LV V1 mean: 68.1 cm/sec LV V1 VTI: 20.6 cm Interpretation Summary The estimated ejection fraction is 65 %. Stage 1 diastolic dysfunction. Trivial tricuspid valve insufficiency. Right ventricular systolic pressure estimated to be 23 mmHg. There is an echo report dated 11/20/2014, no appreciable changes noted. Ordering Physician: Liza Mccray Referring Physician: Moises Salamanca Performed By: Nader Banks RCS
[2019-08-25] MEDS: Carvedilol 3.125 MG TABLET PO (21:05)
[2019-08-25] MEDS: Pravastatin 40 MG Tablet PO (21:25)
[2019-08-25] MEDS: 0.9% Saline Lock 10 ML Syringe IV (23:21)
[2019-08-26] VITALS (14 sets, daily range): BP systolic 106–145; BP diastolic 70–93; PULSE 54–85; RESP 14–18; TEMP 36.5–36.6; O2SAT 94–99
--- NOTE | 2019-08-26 02:16 | NURSING ---
Handoff report given to Irina Soto RN at this time . she will take over care of this pt. at this time.
--- NOTE | 2019-08-26 02:22 | NURSING ---
Report received, this RN resuming care at this time
[2019-08-26 05:06] LABS: Absolute Lymphocyte Count 1.56 X10^3/uL (0.83-4.51); Absolute Neutrophil Count 3.2 X10^3/uL (2.0-7.7); Basophil# 0.02 X10^3/uL; Basophil% 0.4 % (0-1); Eosinophil# 0.16 X10^3/uL; Eosinophils% 2.9 % (0-5); Hematocrit 41.9 % (37-47); Hemoglobin 13.6 g/dL (12.0-15.0); Lymphocyte # 1.56 X10^3/ul (4.0); Lymphocyte % 28.5 % (19-41); Mean Corp Hgb Conc 32.5 g/dL (32-36); Mean Corpuscular Hgb 30.3 pg (27.0-32.0); Mean Corpuscular Volume 93.3 fL (81-99); Mean Platelet Vol. 10.5 fl (6.2-12.0); Monocyte# 0.58 X10^3/uL; Monocyte% 10.6 % (0-10); NRBC Flagged by Analyzer 0 % (0-5); Neutrophil # 3.15 X10^3/uL (2.7-7.7); Neutrophil % 57.4 % (47-70); Platelet Count 259 K/mm3 (150-450); RBC Distribution Width CV 12.5 % (11.6-14.6); RBC Distribution Width SD 42.9 fl (35.1-43.9); Red Blood Count 4.49 M/mm3 (4.2-5.4); White Blood Count 5.5 K/mm3 (4.4-11.0)
[2019-08-26 05:24] LABS: AST(SGOT) 13 U/L (15-37); Alanine Aminotransfer ALT/SGPT 24 U/L (13-56); Albumin, Serum 3.2 g/dL (3.2-5.0); Alkaline Phosphatase 79 U/L (45-117); Anion Gap 5 (5-15); BUN 12 mg/dL (7-18); BUN/Creat Ratio 15.5 RATIO (10-20); Calcium,Total 8.7 mg/dL (8.5-10.1); Chloride 110 mmol/L (98-107); Cholesterol 190 mg/dL (200); Creatinine, Serum 0.77 mg/dL (0.55-1.02); EST Glomerular Filtration Rate 82 mL/min (>60); Est Glom Filt Rate - Afr Amer 100 mL/min (>60); Estimated Creatinine Clearance 80.28 ml/min; Globulin 3.3 g/dL (2.2-4.2); Glucose 100 mg/dL (74-106); High Density Lipoprotein 62 mg/dL; Potassium 3.8 mmol/L (3.5-5.1); Protein, Total 6.5 g/dL (6.4-8.2); Sodium Level 141 mmol/L (136-145); Triglycerides 170 mg/dL; Very Low Density Lipoprotein 34 mg/dL (5-40)
--- NOTE | 2019-08-26 05:55 | EKG12_ITS ---
Test Reason : AM EKG Blood Pressure : / mmHG Vent. Rate : 059 BPM Atrial Rate : 059 BPM P-R Int : 190 ms QRS Dur : 084 ms QT Int : 426 ms P-R-T Axes : 027 000 031 degrees QTc Int : 421 ms Sinus bradycardia Otherwise normal ECG When compared with ECG of 25-AUG-2019 17:25, MANUAL COMPARISON REQUIRED, DATA IS UNCONFIRMED Confirmed by CHARISSE TELLO ([id number]), food editor CLIFF ARMAS ([id number]) on 09/01/2019 11:26:31 AM Referred By: [facility] Confirmed By:CHARISSE TELLO
[2019-08-26] MEDS: Aspirin 81 MG TAB.CHEW PO (09:17)
[2019-08-26] MEDS: 0.9% Saline Lock 10 ML Syringe IV (09:17)
[2019-08-26] MEDS: TICAGRELOR 90 MG TABLET PO (09:17)
[2019-08-26] MEDS: Carvedilol 3.125 MG TABLET PO (09:17)
--- NOTE | 2019-08-26 10:03 | CASEMGMT ---
According to the [employer] website, the following are in-network tertiary facilities: [facility], [facility], [facility], [facility], [facility], [facility], [facility], and . Kellie SUN CM
--- NOTE | 2019-08-26 10:44 | CASEMGMT ---
DINO HARTMANN assessment: Face to Face with patient for initial transition planning/care coordination assessment. DINO HARTMANN introduced self and role at [facility], pt voices understanding and consents to assessment at this time. Pt is sitting up on side of bed in no distress at this time. Pt is A/Ox4 at this time and answers all questions appropriately at this time. Care providers, pharmacy, and demographics verified at this time. Presentation: CP for last 1.5hr-pt states has a lot of stress as [id number] this am-pt c/o pain to chest, back, jaw and arm Admitting dx: Unstable angina PCP: Jadyn Specialists: Pt states no current specialists. Preferred Pharmacy: [facility] [place] Insurance: MMO Prescription Benefit: MMO Living Will/HPOA: Pt states no LW/HPOA and declines AD info at this time. LNOK: Ru Prieto, ; Gilda Muñoz, sister Living Arrangements: Pt states lives with in 2 story home and states no concerns at home at this time. Pt states is independent with ADL's. Transportation: Pt states drives self and states no transportation concerns at this time. DME/HHC: Pt states no current DME or need for any at this time. Pt states no hx of HHC or SNF in the past. Pt states no concerns with going home at time of discharge. 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 Pt states does not smoke or drink ETOH. Pt states no further questions/concerns/needs at this time. CM to follow for any further discharge planning/needs. Advised pt to ask for CM if any further questions/concerns/needs arise, voices understanding. Pt Goal: Home Plan[place] DINO HARTMANN
--- NOTE | 2019-08-26 13:17 | PN_ITS ---
<Zoraida Gibbs - Last Filed: 08/26/19 13:21> Patient Problems: Active and Suspected Problems (Last Reviewed 06/04/19 @ 09:31 by Gracie Huizar) Unstable angina (Acute) Subjective: Patient seen and examined. Denies further chest pain overnight. States she is anxious regarding heart cath. - Physical Exam Vitals/I&O's: Vital Signs Temp Pulse Resp BP Pulse Ox 97.8 F 76 18 145/82 H 98 08/26/19 09:00 08/26/19 11:03 08/26/19 09:00 08/26/19 09:00 08/26/19 09:00 Oxygen Delivery Method Room Air Weight: 206 lb 9.17 oz Body Mass Index (BMI) 32.7 Intake and Output for Last 24 Hours 08/24/19 08/25/19 08/26/19 23:59 23:59 23:59 Intake Total 440 / 440 Balance 440 / 440 General: Alert, Oriented x3, Cooperative HEENT: Atraumatic, PERRLA, EOMI, Normocephalic Neck: Supple, No JVD, Negative Carotid Bruits Lungs: Clear to auscultation, Normal air movement Cardiovascular: Regular rate, No murmurs Abdomen: Bowel Sounds Present, Soft, Non Tender Extremities: No edema, Capillary Refill Less than 3 Seconds Skin: No rashes, No breakdown Musculoskeletal: No Tenderness to Palpation of Joints or Extremities Neurological: Cranial nerves II-XII grossly intact, Neuro grossly intact Psych/Mental Status: Normal Affect, Appropriate Laboratory Results 08/25/19 12:15: Hemoglobin A1c 5.5 08/25/19 15:20: Troponin I 0.109 H 08/25/19 18:30: Troponin I 0.108 H 08/26/19 04:58: WBC 5.5, RBC 4.49, Hgb 13.6, Hct 41.9, MCV 93.3, MCH 30.3, MCHC 32.5, RDW Std Deviation 42.9, RDW Coeff of Karen 12.5, Plt Count 259, MPV 10.5, Immature Gran % (Auto) 0.200, Neut % (Auto) 57.4, Lymph % (Auto) 28.5, [place] % (Auto) 10.6 H, Eos % (Auto) 2.9, Baso % (Auto) 0.4, Absolute Neuts (auto) 3.2, Absolute Lymphs (auto) 1.56, Nucleated RBC % 0 08/26/19 04:58: Sodium 141, Potassium 3.8, Chloride 110 H, Carbon Dioxide 26.0, Anion Gap 5, BUN 12, Creatinine 0.77, Estim Creat Clear Calc 80.28, Est GFR (MDRD) Af Amer 100, Est GFR (MDRD) Non-Af 82, BUN/Creatinine Ratio 15.5, Glucose 100, Calcium 8.7, Total Bilirubin 0.60, AST 13 L, ALT 24, Alkaline Phosphatase 79, Total Protein 6.5, Albumin 3.2, Globulin 3.3, Albumin/Globulin Ratio 1.0, Triglycerides 170, Cholesterol 190, LDL Cholesterol 94, VLDL Cholesterol 34, HDL Cholesterol 62 Current Medications Acetaminophen (Tylenol) 650 mg PO Q6H PRN PRN PRN Reason: Pain Score 1-10/Temp > 100.7 F Aspirin (Aspirin, Baby) 81 mg PO DAILY@0800 [facility] Last Admin: 08/26/19 09:17 Dose: 81 mg Documented by: Carvedilol (Coreg) 3.125 mg PO BID [facility] Last Admin: 08/26/19 09:17 Dose: 3.125 mg Documented by: Sodium Chloride () 250 mls @ 15 mls/hr IV .[id number] PRN PRN Reason: Saline Flush Sodium Chloride () 250 mls @ 15 mls/hr IV .[id number] PRN PRN Reason: Additional IVPB Infusion Sodium Chloride () 1,000 mls @ 0 mls/hr IV .Q0M [facility] Morphine Sulfate () 2 mg IV Q3H PRN PRN PRN Reason: Pain Score 6-10/10 Nitroglycerin (Nitrostat) 0.4 mg SUBLINGUAL Q5M PRN PRN Reason: CARDIAC/CHEST PAIN Ondansetron HCl (Zofran) 4 mg IV Q8H PRN PRN PRN Reason: NAUSEA/VOMITING Pravastatin Sodium (Pravachol) 40 mg PO DAILY@2200 [facility] Last Admin: 08/25/19 21:25 Dose: 40 mg Documented by: Sodium Chloride () 10 - 40 ml IV UD PRN PRN Reason: SALINE FLUSH Last Admin: 08/26/19 09:17 Dose: 10 ml Documented by: Ticagrelor (Brilinta) 90 mg PO BID [facility] Last Admin: 08/26/19 09:17 Dose: 90 mg Documented by: Medical Necessity - Tobacco Use Smoking Status: Never smoker Assessment/Plan All Active Problems (Last Reviewed 06/04/19 @ 09:31 by Gracie Huizar) Unstable angina (Acute) Old myocardial infarction (Acute) Chest pain (Resolved) 1. Chest pain with elevated troponin, history of CAD-EKG without acute changes. Initial troponin 0.109, trended down. Cardiology consulted. Patient follows with Dr. Parikh. Continue aspirin, statin, therapeutic Lovenox. Patient's prior cardiac catheterization in 2014 following non-STEMI demonstrated nonobstructive coronary artery disease in a small diagonal mid to distal branch. Not amendable to intervention. Medical management was recommended at that time. Echocardiogram demonstrates an EF of 65%, stage I diastolic dysfunction. Heart cath pending. 2. Hypertension- not on regimen, monitor BP. 3. Hyperlipidemia- continue statin. 4. History of DVT-provoked following plantar fasciitis surgery. DVT prophylaxis-Lovenox subcu This patient was seen by JAQUELINE Domínguez under the supervision of Dr. Mayer. <Robert Mayer - Last Filed: 08/26/19 15:01> - Physical Exam Vitals/I&O's: Vital Signs Temp Pulse Resp BP Pulse Ox 36.5 C L 67 16 135/75 H 99 08/26/19 14:40 08/26/19 14:40 08/26/19 14:40 08/26/19 14:40 08/26/19 14:40 Oxygen Delivery Method Room Air Weight: 93.7 kg Body Mass Index (BMI) 32.7 Intake and Output for Last 24 Hours 08/24/19 08/25/19 08/26/19 23:59 23:59 23:59 Intake Total 440 / 440 60 / 60 Balance 440 / 440 60 / 60 General: Alert, Cooperative HEENT: Atraumatic, Normocephalic Lungs: Clear to auscultation, Normal air movement, No rhonchi, No wheeze Cardiovascular: Regular rate, No murmurs Abdomen: Bowel Sounds Present, Soft, Non Tender Extremities: No edema, No Calf Tenderness Skin: No rashes, No breakdown Psych/Mental Status: Normal Affect, Appropriate Laboratory Results 08/25/19 12:15: Hemoglobin A1c 5.5 08/25/19 15:20: Troponin I 0.109 H 08/25/19 18:30: Troponin I 0.108 H 08/26/19 04:58: WBC 5.5, RBC 4.49, Hgb 13.6, Hct 41.9, MCV 93.3, MCH 30.3, MCHC 32.5, RDW Std Deviation 42.9, RDW Coeff of Karen 12.5, Plt Count 259, MPV 10.5, Immature Gran % (Auto) 0.200, Neut % (Auto) 57.4, Lymph % (Auto) 28.5, [place] % (Auto) 10.6 H, Eos % (Auto) 2.9, Baso % (Auto) 0.4, Absolute Neuts (auto) 3.2, Absolute Lymphs (auto) 1.56, Nucleated RBC % 0 08/26/19 04:58: Sodium 141, Potassium 3.8, Chloride 110 H, Carbon Dioxide 26.0, Anion Gap 5, BUN 12, Creatinine 0.77, Estim Creat Clear Calc 80.28, Est GFR (MDRD) Af Amer 100, Est GFR (MDRD) Non-Af 82, BUN/Creatinine Ratio 15.5, Glucose 100, Calcium 8.7, Total Bilirubin 0.60, AST 13 L, ALT 24, Alkaline Phosphatase 79, Total Protein 6.5, Albumin 3.2, Globulin 3.3, Albumin/Globulin Ratio 1.0, Triglycerides 170, Cholesterol 190, LDL Cholesterol 94, VLDL Cholesterol 34, HDL Cholesterol 62 Current Medications Acetaminophen (Tylenol) 650 mg PO Q6H PRN PRN PRN Reason: Pain Score 1-10/Temp > 100.7 F Aspirin (Aspirin, Baby) 81 mg PO DAILY@0800 [facility] Last Admin: 08/26/19 09:17 Dose: 81 mg Documented by: Sodium Chloride () 250 mls @ 15 mls/hr IV .[id number] PRN PRN Reason: Saline Flush Sodium Chloride () 250 mls @ 15 mls/hr IV .[id number] PRN PRN Reason: Additional IVPB Infusion Sodium Chloride () 1,000 mls @ 0 mls/hr IV .Q0M [facility] Sodium Chloride () 1,000 mls @ 150 mls/hr IV .Q6H40M [facility] Last Admin: 08/26/19 13:51 Dose: 150 mls/hr Documented by: Labetalol HCl (Trandate) 5 mg IV X1 PRN PRN Reason: SBP > 160 prior to sheath pull Stop: 08/28/19 13:22 Metoprolol Tartrate (Lopressor (Beta Guillermo)) 12.5 mg PO BID [facility] Morphine Sulfate () 2 mg IV Q3H PRN PRN PRN Reason: Pain Score 6-10/10 Nitroglycerin (Nitrostat) 0.4 mg SUBLINGUAL Q5M PRN PRN Reason: CARDIAC/CHEST PAIN Ondansetron HCl (Zofran) 4 mg IV Q8H PRN PRN PRN Reason: NAUSEA/VOMITING Pravastatin Sodium (Pravachol) 40 mg PO DAILY@2200 [facility] Last Admin: 08/25/19 21:25 Dose: 40 mg Documented by: Sodium Chloride () 10 - 40 ml IV UD PRN PRN Reason: SALINE FLUSH Last Admin: 08/26/19 09:17 Dose: 10 ml Documented by: Assessment/Plan Patient seen and examined independently. Data reviewed. I agree with the above note by the nurse practitioner. 1. chest pain: cardiac cath unremarkable. EF 65%. started metoprolol. Inpatient E&M: [id number] [facility] Hosp L2
--- NOTE | 2019-08-26 13:33 | CL.D_ITS ---
Patient Name: BREN KUMAR Study Date: 08/26/2019 Performing: Shreyas Parikh MD Ht: 66.92 inches 170 cm : 1965 Wt: 207.23 lbs 94 kg Age: 53 Gender: female BSA: 2.05 PROCEDURE(S) PERFORMED QP91-WNF/COR/LV CLINICAL PROFILE AND INDICATIONS Patient presents with NSTEMI for urgent cardiac cath Indications: ACS <= 24 hrs, New Onset Angina <= 2 months, Stable Known CAD Heart Failure: None Stress/Imaging Stress/Image Study Performed: No Angina Classification Anginal Classification w/in 2 Weeks: CCS IV CAD Presentations: Non-STEMI. 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 Management for anxiety. D/w Dr Mayer. DESCRIPTION OF PROCEDURE The patient arrived to the procedure lab. The risks and benefits of the procedure as well as a full d escription of our services here and current unavailability of surgical backup were fully explained to the patient and/or their significant other prior to the catheterization. The Timeout was completed, verifying the correct patient and procedure. The patient's procedural site was prepped and draped in the usual fashion. Local anesthetic was given subcutaneously to right groin region with Lidocaine 2%. Using a modified Seldinger technique, arterial access was obtained via the right femoral artery, a 4 Fr sheath was inserted Left Coronary Artery selective angiography was performed in multiple views us ing a 4 Fr. JL5 catheter. Right Coronary Artery selective angiography was then performed in multiple views using a 4 Fr. 3DRC catheter. Left Ventriculography was performed in CORMIER projection using a 4 Fr . Pigtail catheter. LV to AO pullback pressures were then recorded.The arterial sheath was pulled and manual compression applied until hemostasis is achieved. CORONARY ANGIOGRAPHY DOMINANCE: Right Dominant LEFT HEART ASSESSMENT Left Ventricular Ejection Fraction: by LV Gram 65-75 % Normal LV wall motion Normal Left Ventricular systolic function LVEDP: 8 mmHg Normal Left Ventricular End Diastolic Pressure LEFT MAIN: Angiographically normal LEFT ANTERIOR DESCENDING ARTERY: Angiographically normal CIRCUMFLEX ARTERY: Angiographically normal RIGHT CORONARY ARTERY: Angiographically normal COMPLICATIONS No Complications PROCEDURE MEDICATIONS Versed 1 mg IV Oxygen: 2 L/min via nasal cannula SUMMARY OF HEMODYNAMIC DATA Time AIR REST ECG 12:55:06 AO 135/72 (98) SA 13:11:20 LV 134/-11, -7 13:17:20 LVp 135/-11, 8 13:17:41 AOp 146/80 (108) 13:17:46 Signed By Shreyas Parikh MD On 08/26/2019 13:33:00 Shreyas Parikh MD
[2019-08-26] MEDS: 0.9% Normal Saline 1,000 ML 150 ML IV (13:51)
--- NOTE | 2019-08-26 14:56 | PCM.DC ---
- Discharge Diagnoses Current Active Problems: Current Active and Chronic Problems (Last Reviewed 06/04/19 @ 09:31 by Gracie Huizar) chest pain CAD in [place] artery (Chronic) You will use the following diet at home:: No restrictions Discharge Activity: Return to Normal Activity, - - Follow postop Instructions Call your doctor if your incision/area has: Continuous Slow Oozing, Sudden Increased Bleeding, Increased Pain/ Swelling, Increased Redness, Foul Smelling Discharge, Swelling at the incision site Call your doctor if you observe: Shortness of breath, Dizziness, Fainting spells, Chest pain Allergies/Adverse Reactions: Allergies rosuvastatin [From Crestor] Adverse Reaction (Intermediate, Verified 08/25/19 12:12) myalgias and fatigue codeine Adverse Reaction (Verified 08/25/19 12:12) Vomiting hydromorphone HCl [From Dilaudid] Adverse Reaction (Verified 08/25/19 12:12) Sudden severe vomiting morphine Adverse Reaction (Verified 08/25/19 12:12) Sudden Vomiting Medications to take at Discharge cholecalciferol (vitamin D3) 1,250 mcg (50,000 unit) capsule 50,000 unit PO MO 11/20/18 Aspirin [Aspirin, Baby] 81 mg PO QHS 08/25/19 Calcium Carbonate 1 tab PO DAILY 08/25/19 Pravastatin Sodium 40 mg PO QHS 08/25/19 Metoprolol Tartrate [Lopressor (beta maria m)] 12.5 mg PO BID #60 tab 08/26/19 The following prescriptions were given: Metoprolol Tartrate [Lopressor (beta maria m)] 12.5 mg PO BID #60 tab Transmission Status: Pending to [facility] Test Results: Test results from this visit will be discussed in further detail at your follow-up appointment, if applicable. Please Follow Up With: Moises Salamanca MD When: 1 Week Please Follow Up With: Shreyas Parikh MD When: As scheduled Proposed Discharge Date: 08/26/19
--- NOTE | 2019-08-26 14:58 | PCM.DC.SUM ---
<Zoraida Gibbs - Last Filed: 08/26/19 15:02> Discharge Date and Diagnosis - Problem List Patient Problems: Active and Suspected Problems (Last Reviewed 06/04/19 @ 09:31 by Gracie Huizar) Unstable angina (Acute) Date of Admission: 08/25/19 Date of Discharge: 08/26/19 - Primary Discharge Diagnosis Acute Problems: Active Problems (Last Reviewed 06/04/19 @ 09:31 by Gracie Huizar) 1. Chest pain with elevated troponin, history of CAD-ACS ruled out 2. Hypertension 3. Hyperlipidemia 4. History of DVT-provoked following plantar fasciitis surgery. 5. Untreated anxiety - Secondary Discharge Diagnosis Chronic Problems: Chronic Problems (Last Reviewed 06/04/19 @ 09:31 by Gracie Huizar) CAD in [place] artery (Chronic) Atherosclerotic heart disease of [place] coronary artery without angina pectoris (Chronic) non obstructive CAD in very small dx Hyperlipidemia (Chronic) History of left heart catheterization (Chronic ~11/22/14) DVT (deep venous thrombosis) (Chronic ~11/2014) Hospital Course and Treatment Imaging Results: Diagnostic Data Chest X-Ray 08/25/19 12:20 IMPRESSION: Normal x-ray examination of the chest. Electronically Signed: Jaguar Manrique MD at 12:42 EDT , Service support , Dr. Parikh- Cardiology Operations: None Procedures: 2-D Echocardiogram, Cardiac catheterization Summary of Care Provided: The patient is a 53 year old F admitted 08/25/2019 due to chest pain. 1. Chest pain with elevated troponin, history of CAD-EKG without acute changes. Initial troponin 0.109, trended down. Cardiology consulted. Patient follows with Dr. Parikh. Continue aspirin, statin, beta-guillermo. Patient's prior cardiac catheterization in 2014 following non-STEMI demonstrated nonobstructive coronary artery disease in a small diagonal mid to distal branch. Not amendable to intervention. Medical management was recommended at that time. Echocardiogram demonstrates an EF of 65%, stage I diastolic dysfunction. Patient underwent repeat heart cath which demonstrated normal coronary arteries. Follow-up with cardiology as scheduled. 2. Hypertension-initiated on metoprolol 12.5 mg p.o. twice daily. 3. Hyperlipidemia- continue statin. 4. History of DVT-provoked following plantar fasciitis surgery. 5. Untreated anxiety-recommend follow-up with PCP in discussion for initiating medication regimen. General: Alert, Oriented x3, Cooperative HEENT: Atraumatic, PERRLA, EOMI, Normocephalic Neck: Supple, No JVD, Negative Carotid Bruits Lungs: Clear to auscultation, Normal air movement Cardiovascular: Regular rate, No murmurs Abdomen: Bowel Sounds Present, Soft, Non Tender Extremities: No edema, Capillary Refill Less than 3 Seconds Skin: No rashes, No breakdown Musculoskeletal: No Tenderness to Palpation of Joints or Extremities Neurological: Cranial nerves II-XII grossly intact, Neuro grossly intact Psych/Mental Status: Normal Affect, Appropriate Patient seen and examined prior to discharge. Physical assessment as noted above. Patient is stable for discharge with follow up recommendations as noted above. This patient was seen by JAQUELINE Domínguez under the supervision of Dr. Mayer. Patient Problems: Active and Suspected Problems (Last Reviewed 06/04/19 @ 09:31 by Gracie Huizar) Unstable angina (Acute) - Physical Exam Vitals/I&O's: Vital Signs Temp Pulse Resp BP Pulse Ox 97.7 F L 67 16 135/75 H 99 08/26/19 14:40 08/26/19 14:40 08/26/19 14:40 08/26/19 14:40 08/26/19 14:40 Oxygen Delivery Method Room Air Weight: 206 lb 9.17 oz Body Mass Index (BMI) 32.7 Intake and Output for Last 24 Hours 08/24/19 08/25/19 08/26/19 23:59 23:59 23:59 Intake Total 440 / 440 60 / 60 Balance 440 / 440 60 / 60 Laboratory Results 08/25/19 12:15: Hemoglobin A1c 5.5 08/25/19 15:20: Troponin I 0.109 H 08/25/19 18:30: Troponin I 0.108 H 08/26/19 04:58: WBC 5.5, RBC 4.49, Hgb 13.6, Hct 41.9, MCV 93.3, MCH 30.3, MCHC 32.5, RDW Std Deviation 42.9, RDW Coeff of Karen 12.5, Plt Count 259, MPV 10.5, Immature Gran % (Auto) 0.200, Neut % (Auto) 57.4, Lymph % (Auto) 28.5, [place] % (Auto) 10.6 H, Eos % (Auto) 2.9, Baso % (Auto) 0.4, Absolute Neuts (auto) 3.2, Absolute Lymphs (auto) 1.56, Nucleated RBC % 0 08/26/19 04:58: Sodium 141, Potassium 3.8, Chloride 110 H, Carbon Dioxide 26.0, Anion Gap 5, BUN 12, Creatinine 0.77, Estim Creat Clear Calc 80.28, Est GFR (MDRD) Af Amer 100, Est GFR (MDRD) Non-Af 82, BUN/Creatinine Ratio 15.5, Glucose 100, Calcium 8.7, Total Bilirubin 0.60, AST 13 L, ALT 24, Alkaline Phosphatase 79, Total Protein 6.5, Albumin 3.2, Globulin 3.3, Albumin/Globulin Ratio 1.0, Triglycerides 170, Cholesterol 190, LDL Cholesterol 94, VLDL Cholesterol 34, HDL Cholesterol 62 Current Medications Acetaminophen (Tylenol) 650 mg PO Q6H PRN PRN PRN Reason: Pain Score 1-10/Temp > 100.7 F Aspirin (Aspirin, Baby) 81 mg PO DAILY@0800 [facility] Last Admin: 08/26/19 09:17 Dose: 81 mg Documented by: Sodium Chloride () 250 mls @ 15 mls/hr IV .[id number] PRN PRN Reason: Saline Flush Sodium Chloride () 250 mls @ 15 mls/hr IV .[id number] PRN PRN Reason: Additional IVPB Infusion Sodium Chloride () 1,000 mls @ 0 mls/hr IV .Q0M [facility] Sodium Chloride () 1,000 mls @ 150 mls/hr IV .Q6H40M [facility] Last Admin: 08/26/19 13:51 Dose: 150 mls/hr Documented by: Labetalol HCl (Trandate) 5 mg IV X1 PRN PRN Reason: SBP > 160 prior to sheath pull Stop: 08/28/19 13:22 Metoprolol Tartrate (Lopressor (Beta Guillermo)) 12.5 mg PO BID [facility] Morphine Sulfate () 2 mg IV Q3H PRN PRN PRN Reason: Pain Score 6-10/10 Nitroglycerin (Nitrostat) 0.4 mg SUBLINGUAL Q5M PRN PRN Reason: CARDIAC/CHEST PAIN Ondansetron HCl (Zofran) 4 mg IV Q8H PRN PRN PRN Reason: NAUSEA/VOMITING Pravastatin Sodium (Pravachol) 40 mg PO DAILY@2200 [facility] Last Admin: 08/25/19 21:25 Dose: 40 mg Documented by: Sodium Chloride () 10 - 40 ml IV UD PRN PRN Reason: SALINE FLUSH Last Admin: 08/26/19 09:17 Dose: 10 ml Documented by: Discharge Diet: Low fat/ Low Cholesterol Discharge Activity: Return to Normal Activity, - - Follow postop Instructions Call your doctor if your incision/area has: Continuous Slow Oozing, Sudden Increased Bleeding, Increased Pain/ Swelling, Increased Redness, Foul Smelling Discharge, Swelling at the incision site Call your doctor if you observe: Shortness of breath, Dizziness, Fainting spells, Chest pain Home Medications: Medications to take at Discharge cholecalciferol (vitamin D3) 1,250 mcg (50,000 unit) capsule 50,000 unit PO MO 11/20/18 Aspirin [Aspirin, Baby] 81 mg PO QHS 08/25/19 Calcium Carbonate 1 tab PO DAILY 08/25/19 Pravastatin Sodium 40 mg PO QHS 08/25/19 Metoprolol Tartrate [Lopressor (beta guillermo)] 12.5 mg PO BID #60 tab 08/26/19 Following Prescrptions Were Given to Patient: Metoprolol Tartrate [Lopressor (beta guillermo)] 12.5 mg PO BID #60 tab Transmission Status: Received by JUSTINO FRAZIER-[address] [facility] Primary Care Physician: Moises Salamanca MD [Primary Care Provider] - Please Follow Up With: Moises Salamanca MD When: 1 Week Please Follow Up With: Shreyas Parikh MD When: As scheduled Disposition: Home Minutes spent on discharge:: 35 Patient Condition:: Stable Medical Necessity - Tobacco Use Smoking Status: Never smoker Meaningful Use Info Meaningful Use Diagnoses (Choose all that apply): None applicable <Robert Mayer - Last Filed: 08/26/19 16:06> Discharge Date and Diagnosis - Primary Discharge Diagnosis Acute Problems: Active Problems (Last Reviewed 06/04/19 @ 09:31 by Gracie Huizar) Unstable angina (Acute) - Secondary Discharge Diagnosis Chronic Problems: Chronic Problems (Last Reviewed 06/04/19 @ 09:31 by Gracie Huizar) CAD in [place] artery (Chronic) Atherosclerotic heart disease of [place] coronary artery without angina pectoris (Chronic) non obstructive CAD in very small dx Hyperlipidemia (Chronic) History of left heart catheterization (Chronic ~11/22/14) DVT (deep venous thrombosis) (Chronic ~11/2014) Hospital Course and Treatment Operations: None Procedures: 2-D Echocardiogram, Cardiac catheterization Summary of Care Provided: Patient seen and examined independently. Data reviewed. I agree with the above note by the nurse practitioner. The patient is a 53 year old F presents with chest pain. Patient had some slight elevated troponins. Patient underwent a left heart catheterization showed no acute process. Patient be discharged with transitioning her carvedilol over to metoprolol tartrate. [] - Physical Exam Vitals/I&O's: Vital Signs Temp Pulse Resp BP Pulse Ox 36.5 C L 75 18 134/79 H 98 08/26/19 14:40 08/26/19 15:40 08/26/19 15:40 08/26/19 15:40 08/26/19 15:40 Oxygen Delivery Method Room Air Weight: 93.7 kg Body Mass Index (BMI) 32.7 Intake and Output for Last 24 Hours 08/24/19 08/25/19 08/26/19 23:59 23:59 23:59 Intake Total 440 / 440 60 / 60 Balance 440 / 440 60 / 60 Laboratory Results 08/25/19 12:15: Hemoglobin A1c 5.5 08/25/19 18:30: Troponin I 0.108 H 08/26/19 04:58: WBC 5.5, RBC 4.49, Hgb 13.6, Hct 41.9, MCV 93.3, MCH 30.3, MCHC 32.5, RDW Std Deviation 42.9, RDW Coeff of Karen 12.5, Plt Count 259, MPV 10.5, Immature Gran % (Auto) 0.200, Neut % (Auto) 57.4, Lymph % (Auto) 28.5, [place] % (Auto) 10.6 H, Eos % (Auto) 2.9, Baso % (Auto) 0.4, Absolute Neuts (auto) 3.2, Absolute Lymphs (auto) 1.56, Nucleated RBC % 0 08/26/19 04:58: Sodium 141, Potassium 3.8, Chloride 110 H, Carbon Dioxide 26.0, Anion Gap 5, BUN 12, Creatinine 0.77, Estim Creat Clear Calc 80.28, Est GFR (MDRD) Af Amer 100, Est GFR (MDRD) Non-Af 82, BUN/Creatinine Ratio 15.5, Glucose 100, Calcium 8.7, Total Bilirubin 0.60, AST 13 L, ALT 24, Alkaline Phosphatase 79, Total Protein 6.5, Albumin 3.2, Globulin 3.3, Albumin/Globulin Ratio 1.0, Triglycerides 170, Cholesterol 190, LDL Cholesterol 94, VLDL Cholesterol 34, HDL Cholesterol 62 Current Medications Acetaminophen (Tylenol) 650 mg PO Q6H PRN PRN PRN Reason: Pain Score 1-10/Temp > 100.7 F Aspirin (Aspirin, Baby) 81 mg PO DAILY@0800 [facility] Last Admin: 08/26/19 09:17 Dose: 81 mg Documented by: Sodium Chloride () 250 mls @ 15 mls/hr IV .[id number] PRN PRN Reason: Saline Flush Sodium Chloride () 250 mls @ 15 mls/hr IV .[id number] PRN PRN Reason: Additional IVPB Infusion Sodium Chloride () 1,000 mls @ 0 mls/hr IV .Q0M [facility] Sodium Chloride () 1,000 mls @ 150 mls/hr IV .Q6H40M [facility] Last Admin: 08/26/19 13:51 Dose: 150 mls/hr Documented by: Labetalol HCl (Trandate) 5 mg IV X1 PRN PRN Reason: SBP > 160 prior to sheath pull Stop: 08/28/19 13:22 Metoprolol Tartrate (Lopressor (Beta Guillermo)) 12.5 mg PO BID [facility] Morphine Sulfate () 2 mg IV Q3H PRN PRN PRN Reason: Pain Score 6-10/10 Nitroglycerin (Nitrostat) 0.4 mg SUBLINGUAL Q5M PRN PRN Reason: CARDIAC/CHEST PAIN Ondansetron HCl (Zofran) 4 mg IV Q8H PRN PRN PRN Reason: NAUSEA/VOMITING Pravastatin Sodium (Pravachol) 40 mg PO DAILY@2200 [facility] Last Admin: 08/25/19 21:25 Dose: 40 mg Documented by: Sodium Chloride () 10 - 40 ml IV UD PRN PRN Reason: SALINE FLUSH Last Admin: 08/26/19 09:17 Dose: 10 ml Documented by: Discharge Diet: Low fat/ Low Cholesterol Discharge Activity: Return to Normal Activity, - Minutes spent on discharge:: 35 Patient Condition:: Stable Meaningful Use Info Meaningful Use Diagnoses (Choose all that apply): None applicable Inpatient E&M: 20478 [facility] Hosp
--- NOTE | 2019-08-26 17:40 | NURSING ---
Patient heart catheterization bedrest complete at this time. R groin site c/d/i. Patient ambulated throughout room without issue
== END 2019-08-26 18:20 | disposition home or self-care (01) | DRG 287 ==
LOC: ED 16:57 → PCU 16:58
PROVIDERS: Admitting Provider Internal Medicine; Emergency Provider Emergency Medicine; PCP Family Medicine
DX: I25.110 Atherosclerotic heart disease of native coronary artery with unstable angina pectoris (principal); E66.9 Obesity, unspecified; E78.5 Hyperlipidemia, unspecified; F41.9 Anxiety disorder, unspecified; I25.2 Old myocardial infarction; Z86.718 Personal history of other venous thrombosis and embolism; Z79.899 Other long term (current) drug therapy; Z79.82 Long term (current) use of aspirin; Z68.32 Body mass index [BMI] 32.0-32.9, adult; I10 Essential (primary) hypertension; Z82.49 Family history of ischemic heart disease and other diseases of the circulatory system
CPT/HCPCS: 36415; 71045; 80048; 80053; 80061; 83036; 84484; 85025; 93005; 93306; 93458; 99152; 99218; 99285; J7030; Q9967; A4216; C1769; C1894; G0378

== ENCOUNTER → 2020-03-01 09:26 | Outpatient (CLI) | payer OTHER, SELFPAY ==
[2020-01-08 10:06] VITALS: BMI 32.8
[2020-03-01 12:11] LABS: Absolute Lymphocyte Count 1.66 X10^3/uL (0.83-4.51); Absolute Neutrophil Count 2.8 X10^3/uL (2.0-7.7); Basophil# 0.03 X10^3/uL; Basophil% 0.6 % (0-1); Eosinophil# 0.11 X10^3/uL; Eosinophils% 2.1 % (0-5); Hematocrit 41.7 % (37-47); Hemoglobin 13.1 g/dL (12.0-15.0); Lymphocyte # 1.66 X10^3/ul (4.0); Lymphocyte % 32.4 % (19-41); Mean Corp Hgb Conc 31.4 g/dL (32-36); Mean Corpuscular Hgb 29.2 pg (27.0-32.0); Mean Corpuscular Volume 93.1 fL (81-99); Mean Platelet Vol. 11.6 fl (6.2-12.0); Monocyte# 0.51 X10^3/uL; Monocyte% 9.9 % (0-10); NRBC Flagged by Analyzer 0 % (0-5); Neutrophil % 54.6 % (47-70); Platelet Count 291 K/mm3 (150-450); RBC Distribution Width CV 12.9 % (11.6-14.6); RBC Distribution Width SD 44.3 fl (35.1-43.9); Red Blood Count 4.48 M/mm3 (4.2-5.4); White Blood Count 5.1 K/mm3 (4.4-11.0)
[2020-03-01 12:38] LABS: ALB/GLOB Ratio 1.1 RATIO (0.9-2.4); AST(SGOT) 20 U/L (15-37); Alanine Aminotransfer ALT/SGPT 29 U/L (13-56); Albumin, Serum 3.4 g/dL (3.2-5.0); Alkaline Phosphatase 85 U/L (45-117); Anion Gap 6 (5-15); BUN 13 mg/dL (7-18); BUN/Creat Ratio 16.3 RATIO (10-20); CPK Total, Creatine Kinase 181 U/L (26-192); Calcium,Total 8.8 mg/dL (8.5-10.1); Chloride 109 mmol/L (98-107); Cholesterol 202 mg/dL (200); EST Glomerular Filtration Rate 79 mL/min (>60); Est Glom Filt Rate - Afr Amer 96 mL/min (>60); Globulin 3.2 g/dL (2.2-4.2); Glucose 85 mg/dL (74-106); High Density Lipoprotein 64 mg/dL; Potassium 3.9 mmol/L (3.5-5.1); Protein, Total 6.6 g/dL (6.4-8.2); Sodium Level 141 mmol/L (136-145); Triglycerides 152 mg/dL; Very Low Density Lipoprotein 30 mg/dL (5-40)
[2020-03-01 12:40] LABS: Vitamin D,25 Hydroxy 49.4 ng/mL
[2020-03-01 13:02] LABS: AST(SGOT) 23 U/L (15-37); Alanine Aminotransfer ALT/SGPT 30 U/L (13-56); Albumin, Serum 3.4 g/dL (3.2-5.0); Alkaline Phosphatase 87 U/L (45-117); Bilirubin, Direct 0.15 mg/dL (0.00-0.30); Globulin 3.2 g/dL (2.2-4.2); Protein, Total 6.6 g/dL (6.4-8.2)
== END ==
PROVIDERS: Physician Assistant Medical; PCP Family Medicine; Referring Provider Family Medicine; Visit Provider Family Medicine
DX: I25.10 Atherosclerotic heart disease of native coronary artery without angina pectoris (principal); E78.5 Hyperlipidemia, unspecified; E55.9 Vitamin D deficiency, unspecified; R74.8 Abnormal levels of other serum enzymes
CPT/HCPCS: 80053; 80061; 80076; 82306; 82550; 85025

== ENCOUNTER → 2020-07-12 10:13 | Outpatient (CLI) | payer OTHER, SELFPAY ==
[2020-01-08 10:06] VITALS: BMI 32.8
[2020-07-12 12:27] LABS: Absolute Neutrophil Count 2.9 X10^3/uL (2.0-7.7); Basophil# 0.03 X10^3/uL; Basophil% 0.6 % (0-1); Eosinophils% 1.9 % (0-5); Hematocrit 43.8 % (37-47); Hemoglobin 13.9 g/dL (12.0-15.0); Lymphocyte % 33.1 % (19-41); Mean Corp Hgb Conc 31.7 g/dL (32-36); Mean Corpuscular Hgb 28.9 pg (27.0-32.0); Mean Corpuscular Volume 91.1 fL (81-99); Mean Platelet Vol. 11.1 fl (6.2-12.0); Monocyte# 0.42 X10^3/uL; Monocyte% 8.2 % (0-10); NRBC Flagged by Analyzer 0 % (0-5); Neutrophil # 2.88 X10^3/uL (2.7-7.7); Neutrophil % 56.2 % (47-70); Platelet Count 304 K/mm3 (150-450); RBC Distribution Width CV 12.5 % (11.6-14.6); RBC Distribution Width SD 41.4 fl (35.1-43.9); Red Blood Count 4.81 M/mm3 (4.2-5.4); White Blood Count 5.1 K/mm3 (4.4-11.0)
[2020-07-12 12:55] LABS: AST(SGOT) 18 U/L (15-37); Alanine Aminotransfer ALT/SGPT 34 U/L (13-56); Albumin, Serum 3.7 g/dL (3.2-5.0); Alkaline Phosphatase 107 U/L (45-117); Anion Gap 5 (5-15); BUN 12 mg/dL (7-18); BUN/Creat Ratio 15.6 RATIO (10-20); Chloride 108 mmol/L (98-107); Cholesterol 185 mg/dL (200); Creatinine, Serum 0.77 mg/dL (0.55-1.02); EST Glomerular Filtration Rate 83 mL/min (>60); Est Glom Filt Rate - Afr Amer 100 mL/min (>60); Globulin 3.6 g/dL (2.2-4.2); Glucose 92 mg/dL (74-106); High Density Lipoprotein 70 mg/dL; Potassium 3.9 mmol/L (3.5-5.1); Protein, Total 7.3 g/dL (6.4-8.2); Sodium Level 139 mmol/L (136-145); Thyroid Stim Hormone (TSH) 1.36 uIU/mL (0.358-3.74); Triglycerides 164 mg/dL; Very Low Density Lipoprotein 33 mg/dL (5-40)
== END ==
PROVIDERS: PCP Family Medicine; Referring Provider Family Medicine; Visit Provider Family Medicine
DX: I25.10 Atherosclerotic heart disease of native coronary artery without angina pectoris (principal); E55.9 Vitamin D deficiency, unspecified; R53.83 Other fatigue
CPT/HCPCS: 36415; 80053; 80061; 82306; 84443; 85025

== ENCOUNTER → 2020-07-25 10:33 | Outpatient (CLI) | payer OTHER, SELFPAY ==
[2020-01-08 10:06] VITALS: BMI 32.8
--- NOTE | 2020-07-25 10:36 | BI_ITS ---
MAMMOGRAPHY - BILATERAL SCREENING REASON FOR EXAM: Female, 54 years old. Routine annual screening examination. PERTINENT HISTORY: Non-contributory. TECHNIQUE: Digital bilateral breast deepak (3D mammographic acquisition) in the CC and MLO projections. 2-D mediolateral oblique (MLO) and craniocaudad (CC) views of both breasts were obtained. CAD: Full Field Digital Mammography with Computer Added Detection was performed. COMPARISON: Comparison is made with prior study 07/23/2019 and 04/01/2017. FINDINGS: Breast Composition: There are scattered areas of fibroglandular density. There are no dominant masses or suspicious calcifications. Stable small benign-appearing bilateral axillary lymph nodes. No other significant abnormalities are identified. There has been no significant change since the prior study. BI/SCRN MAMM (CAD)W/DEEPAK BILAT IMPRESSION: Stable bilateral screening mammogram. Yearly follow-up mammogram recommended. (A) ASSESSMENT CATEGORY: BIRADS Category 2: Benign. A letter regarding these results will be sent to the patient by the facility within 30 days. Approximately 10% of breast cancers are not detected by mammography. A normal mammogram should not delay biopsy of a clinically suspicious abnormality. [id number] Electronically Signed: Ephraim Estrada MD at 12:25 EDT , Service support ,
== END ==
PROVIDERS: PCP Family Medicine; Referring Provider Family Medicine; Visit Provider Family Medicine
DX: Z12.31 Encounter for screening mammogram for malignant neoplasm of breast (principal)
CPT/HCPCS: 77063; 77067

== ENCOUNTER → 2020-08-11 | Outpatient (CLI) | payer OTHER, SELFPAY ==
[2020-01-08 10:06] VITALS: BMI 32.8
[2020-08-16 17:34] LABS: HPV APTIMA, High Risk Negative (Negative)
[2020-08-16 20:30] LABS: HPV Reflexed? YES, CHARGE PATIENT
== END | disposition home or self-care (01) ==
LOC: LABSPEC 13:18
PROVIDERS: PCP Family Medicine; Visit Provider Obstetrics & Gynecology
DX: Z12.4 Encounter for screening for malignant neoplasm of cervix (principal)
CPT/HCPCS: 87624; 88175; G0145

== ENCOUNTER 2021-04-12 07:04 | Outpatient (CLI) | payer OTHER, SELFPAY ==
[2021-04-12 10:29] LABS: Absolute Neutrophil Count 2.4 X10^3/uL (2.0-7.7); Basophil# 0.02 X10^3/uL; Basophil% 0.5 % (0-1); Eosinophil# 0.09 X10^3/uL; Eosinophils% 2.1 % (0-5); Hematocrit 39.3 % (37-47); Hemoglobin 12.9 g/dL (12.0-15.0); Lymphocyte % 32.6 % (19-41); Mean Corp Hgb Conc 32.8 g/dL (32-36); Mean Corpuscular Hgb 29.8 pg (27.0-32.0); Mean Corpuscular Volume 90.8 fL (81-99); Mean Platelet Vol. 11.4 fl (6.2-12.0); Monocyte# 0.39 X10^3/uL; Monocyte% 9.1 % (0-10); NRBC Flagged by Analyzer 0 % (0-5); Neutrophil # 2.39 X10^3/uL (2.7-7.7); Neutrophil % 55.7 % (47-70); Platelet Count 300 K/mm3 (150-450); RBC Distribution Width CV 12.6 % (11.6-14.6); RBC Distribution Width SD 42.2 fl (35.1-43.9); Red Blood Count 4.33 M/mm3 (4.2-5.4); White Blood Count 4.3 K/mm3 (4.4-11.0)
[2021-04-12 11:03] LABS: AST(SGOT) 17 U/L (15-37); Alanine Aminotransfer ALT/SGPT 29 U/L (13-56); Albumin, Serum 3.4 g/dL (3.2-5.0); Alkaline Phosphatase 89 U/L (45-117); Anion Gap 7 (5-15); BUN 10 mg/dL (7-18); BUN/Creat Ratio 13.7 RATIO (10-20); Calcium,Total 8.7 mg/dL (8.5-10.1); Chloride 110 mmol/L (98-107); Cholesterol 156 mg/dL (200); Creatinine, Serum 0.73 mg/dL (0.55-1.02); EST Glomerular Filtration Rate 87 mL/min (>60); Est Glom Filt Rate - Afr Amer 106 mL/min (>60); Globulin 3.4 g/dL (2.2-4.2); Glucose 94 mg/dL (74-106); High Density Lipoprotein 63 mg/dL; Potassium 4.1 mmol/L (3.5-5.1); Protein, Total 6.8 g/dL (6.4-8.2); Sodium Level 142 mmol/L (136-145); Triglycerides 89 mg/dL; Very Low Density Lipoprotein 18 mg/dL (5-40)
== END 2021-04-12 23:59 | disposition home or self-care (01) ==
LOC: MTLAB 07:05
PROVIDERS: PCP Family Medicine; Referring Provider Family Medicine; Visit Provider Family Medicine
DX: I25.10 Atherosclerotic heart disease of native coronary artery without angina pectoris (principal); E55.9 Vitamin D deficiency, unspecified
CPT/HCPCS: 36415; 80053; 80061; 82306; 85025

== ENCOUNTER → 2022-05-24 | Outpatient (CLI) | payer OTHER, SELFPAY ==
[2022-05-24 12:34] LABS: Absolute Lymphocyte Count 1.25 X10^3/uL (0.83-4.51); Absolute Neutrophil Count 8.9 X10^3/uL (2.0-7.7); Basophil# 0.02 X10^3/uL; Basophil% 0.2 % (0-1); Eosinophil# 0.03 X10^3/uL; Eosinophils% 0.3 % (0-5); Hematocrit 37.7 % (37-47); Hemoglobin 12.5 g/dL (12.0-15.0); Lymphocyte # 1.25 X10^3/ul (0.83-4.51); Lymphocyte % 11.3 % (19-41); Mean Corp Hgb Conc 33.2 g/dL (32-36); Mean Corpuscular Hgb 29.9 pg (27.0-32.0); Mean Corpuscular Volume 90.2 fL (81-99); Mean Platelet Vol. 11.4 fl (6.2-12.0); Monocyte# 0.76 X10^3/uL; Monocyte% 6.9 % (0-10); NRBC Flagged by Analyzer 0 % (0-5); Neutrophil # 8.92 X10^3/uL (2.7-7.7); Neutrophil % 80.9 % (47-70); Platelet Count 256 K/mm3 (150-450); RBC Distribution Width CV 12.9 % (11.6-14.6); RBC Distribution Width SD 42.7 fl (35.1-43.9); Red Blood Count 4.18 M/mm3 (4.2-5.4)
[2022-05-24 13:01] LABS: AST(SGOT) 17 U/L (15-37); Alanine Aminotransfer ALT/SGPT 25 U/L (13-56); Albumin, Serum 3.5 g/dL (3.2-5.0); Alkaline Phosphatase 80 U/L (45-117); Anion Gap 8 (5-15); BUN 11 mg/dL (7-18); BUN/Creat Ratio 13.4 RATIO (10-20); Calcium,Total 8.9 mg/dL (8.5-10.1); Chloride 106 mmol/L (98-107); Cholesterol 130 mg/dL (200); Creatinine, Serum 0.82 mg/dL (0.55-1.02); EST Glomerular Filtration Rate 76 mL/min (>60); Est Glom Filt Rate - Afr Amer 92 mL/min (>60); Globulin 3.4 g/dL (2.2-4.2); Glucose 130 mg/dL (74-106); High Density Lipoprotein 58 mg/dL; Potassium 3.5 mmol/L (3.5-5.1); Protein, Total 6.9 g/dL (6.4-8.2); Sodium Level 139 mmol/L (136-145); T4 Free Direct 1.41 ng/dL (0.76-1.46); Thyroid Stim Hormone (TSH) 0.62 uIU/mL (0.358-3.74); Triglycerides 96 mg/dL; Very Low Density Lipoprotein 19 mg/dL (5-40)
[2022-05-24 13:03] LABS: Vitamin B12 309 pg/mL (211-911); Vitamin D,25 Hydroxy 65.2 ng/mL
[2022-05-24 16:05] LABS: Hemoglobin A1c 5.6 % (3.8-5.6)
== END | disposition home or self-care (01) ==
LOC: MFPLAB 11:06
PROVIDERS: PCP Family Medicine; Referring Provider Family Medicine; Visit Provider Family Medicine
DX: I25.10 Atherosclerotic heart disease of native coronary artery without angina pectoris (principal); R53.83 Other fatigue; E55.9 Vitamin D deficiency, unspecified
CPT/HCPCS: 36415; 80053; 80061; 82306; 82607; 83036; 84439; 84443; 85025

== ENCOUNTER → 2023-01-09 | Outpatient (CLI) | payer OTHER, SELFPAY ==
[2023-01-09 12:22] LABS: Absolute Lymphocyte Count 1.57 X10^3/uL (0.83-4.51); Absolute Neutrophil Count 2.6 X10^3/uL (2.0-7.7); Basophil# 0.03 X10^3/uL; Basophil% 0.6 % (0-1); Eosinophils% 2.1 % (0-5); Hematocrit 40.8 % (37-47); Lymphocyte # 1.57 X10^3/ul (0.83-4.51); Lymphocyte % 32.6 % (19-41); Mean Corp Hgb Conc 31.9 g/dL (32-36); Mean Corpuscular Volume 94.2 fL (81-99); Mean Platelet Vol. 11.9 fl (6.2-12.0); Monocyte% 10.4 % (0-10); NRBC Flagged by Analyzer 0 % (0-5); Neutrophil # 2.61 X10^3/uL (2.7-7.7); Neutrophil % 54.1 % (47-70); Platelet Count 276 K/mm3 (150-450); RBC Distribution Width CV 12.6 % (11.6-14.6); RBC Distribution Width SD 43.3 fl (35.1-43.9); Red Blood Count 4.33 M/mm3 (4.2-5.4); White Blood Count 4.8 K/mm3 (4.4-11.0)
[2023-01-09 12:41] LABS: ALB/GLOB Ratio 1.1 RATIO (0.9-2.4); AST(SGOT) 14 U/L (15-37); Alanine Aminotransfer ALT/SGPT 24 U/L (13-56); Albumin, Serum 3.5 g/dL (3.2-5.0); Alkaline Phosphatase 102 U/L (45-117); Anion Gap 2 (5-15); BUN 10 mg/dL (7-18); BUN/Creat Ratio 14.2 RATIO (10-20); Calcium,Total 8.8 mg/dL (8.5-10.1); Chloride 111 mmol/L (98-107); Cholesterol 171 mg/dL (200); EST Glomerular Filtration Rate 91 mL/min (>60); Est Glom Filt Rate - Afr Amer 110 mL/min (>60); Globulin 3.3 g/dL (2.2-4.2); Glucose 101 mg/dL (74-106); High Density Lipoprotein 60 mg/dL; Protein, Total 6.8 g/dL (6.4-8.2); Sodium Level 140 mmol/L (136-145); Triglycerides 200 mg/dL; Very Low Density Lipoprotein 40 mg/dL (5-40)
[2023-01-09 12:45] LABS: Vitamin D,25 Hydroxy 60.6 ng/mL
[2023-01-09 12:55] LABS: Hemoglobin A1c 5.5 % (3.8-5.6)
== END | disposition home or self-care (01) ==
LOC: MFPLAB 10:22
PROVIDERS: PCP Family Medicine; Visit Provider Family Medicine
DX: R73.09 Other abnormal glucose (principal); I25.10 Atherosclerotic heart disease of native coronary artery without angina pectoris; E55.9 Vitamin D deficiency, unspecified
CPT/HCPCS: 36415; 80053; 80061; 82306; 83036; 85025

== ENCOUNTER → 2023-03-13 | Outpatient (CLI) | payer OTHER, SELFPAY ==
--- NOTE | 2023-03-13 10:07 | BI_ITS ---
MAMMOGRAPHY - BILATERAL SCREENING REASON FOR EXAM: Female, 57 years old. Routine annual screening examination. PERTINENT HISTORY: Non-contributory. TECHNIQUE: Digital bilateral breast deepak (3D mammographic acquisition) in the CC and MLO projections. 2-D mediolateral oblique (MLO) and craniocaudad (CC) views of both breasts were obtained. CAD: Full Field Digital Mammography with Computer Added Detection was performed. COMPARISON: Comparison is made with prior study July 25, 2020 and July 23, 2019. FINDINGS: Breast Composition: There are scattered areas of fibroglandular density. There are no dominant masses or suspicious calcifications. Stable benign-appearing bilateral axillary lymph nodes. No other significant abnormalities are identified. There has been no significant change since the prior study. BI/SCRN MAMM (CAD)W/DEEPAK BILAT IMPRESSION: Stable bilateral screening mammogram. Yearly follow-up mammogram recommended. (A) ASSESSMENT CATEGORY: BIRADS Category 2: Benign. A letter regarding these results will be sent to the patient by the facility within 30 days. Approximately 10% of breast cancers are not detected by mammography. A normal mammogram should not delay biopsy of a clinically suspicious abnormality. [id number] Electronically Signed: Ephraim Estrada MD at 12:21 EST ,
--- OUTSIDE RECORDS SUMMARY | 2023-03-13 10:49 | XMS RPT_ITS | CCD ---
Author Name Unknown Address [address] [place] [address] Organization [facility] Care Team Providers Care Vehicle Upholsterer Name Role Phone Ermelinda Todd LPN Unavailable Unavailab le Ermelinda Todd LPN Unavailable Unavailab le Allergies Allergy Classification Reported Allergen(s) Allergy Type Date of Onset Reaction(s) Facility (6 sources) clopidogrel; Translations: [PLAVIX] Drug Allergy 5 Lump in throat., throat swelling/lump in throat [facility] Work Phone: (2 sources) HYDROmorphone Drug Allergy 5 Vomiting [facility] Work Phone: (2 sources) morphine Drug Allergy 5 SOB,Weakness [facility] Work Phone: (2 sources) CODIENE drug allergy 5 vomiting [facility] Work Phone: Medications Completed/Discontinued Medications Medication Drug Class(es) Dates Sig (Normalized) Sig (Original) amoxicillin 875 mg / clavulanate 125 mg oral tablet (2 sources) Penicillin-class Antibacterial Start: 01-04-2017 End: 01-14-2017 AMOXICILLIN-POT CLAVULANATE 875-125 MG TABS Take 1 tab every 12 hours AMOXICILLIN-POT CLAVULANATE [id number] Alfredo CASTLE aspirin 81 mg oral tablet (6 sources) Nonsteroidal Anti-inflammatory Drug Start: 12-03-2014 take 1 tablet by mouth once daily ASPIRIN 81 MG TABS One tablet by mouth daily ASPIRIN [id number] Gracie Huizar RN Problems Active Problems Problem Classification Problem Date Documented Date Episodic/Chronic Acute myocardial infarction (4 sources) Myocardial infarction; Translations: [Non-ST elevation (NSTEMI) myocardial infarction] Onset: 12-03-2014 12-03-2014 Chronic Coronary atherosclerosis and other heart disease (6 sources) Coronary arteriosclerosis in [place] artery; Translations: [Atherosclerotic heart disease of [place] coronary artery without angina pectoris] Onset: 12-03-2014 12-03-2014 Chronic Disorders of lipid metabolism (2 sources) Hyperlipidemia; Translations: [Hyperlipidemia, unspecified] Onset: 12-03-2014 12-03-2014 Chronic Unclassified (2 sources) Body mass index (BMI) 31.0-31.9, adult; Translations: [Body mass index (BMI) 31.0-31.9, adult] Onset: 07-04-2015 07-04-2015 Chronic Unclassified (2 sources) Long-term drug therapy; Translations: [Other termite treater helper (current) drug therapy] Onset: 12-03-2014 12-03-2014 Unclassified (2 sources) Screening for malignant neoplasm of colon ; Translations: [Encounter for screening for malignant neoplasm of colon] Onset: 08-14-2016 08-14-2016 Past or Other Problems Problem Classification Problem Date Documented Da te Episodic/Chronic Other upper respiratory infections (2 sources) Acute sinusitis; Translations: [Acute sinusitis, unspecified] Onset: 7 01-04-2017 Episodic Phlebitis; thrombophlebitis and thromboembolism (2 sources) Thrombophlebitis of deep veins of lower extremity; Translations: [Phlebitis and thrombophlebitis of unspecified deep vessels of right lower extremity] Onset: 12-03-2014 Episodic Results Test Name Value Interpretation Reference Range Facil ity Vital Signs Date Time Vital Sign Value Performing Clinician Faci keithy 01-04-2017 11:45-0400 BMI (Body Mass Index) 31.81 kg/m2 Ermelinda Todd LPN [facility] Work Phone: 01-04-2017 11:45-0400 Body Temperature 98.8 [degF] Ermelinda Todd LPN [facility] Work Phone: 01-04-2017 11:45-0400 BP Diastolic 82 mm[Hg] Ermelinda Todd LPN [facility] Work Phone: 01-04-2017 11:45-0400 BP Systolic 118 mm[Hg] Ermelinda Todd LPN [facility] Work Phone: 01-04-2017 11:45-0400 Height 175.26 cm Ermelinda Todd LPN [facility] Work Phone: 01-04-2017 11:45-0400 Pulse (Heart Rate) 84 /min Ermelinda Todd LPN [facility] Work Phone: 01-04-2017 11:45-0400 Respiratory Rate 13 /min Ermelinda Todd LPN [facility] Work Phone: 01-04-2017 11:45-0400 Weight 97.71 kg Ermelinda Todd LPN [facility] Work Phone: 08-14-2016 13:14-0400 Body Temperature 98.1 [degF] Ermelinda Todd LPN [facility] Work Phone: 08-14-2016 13:14-0400 BSA (Body Surface Area) 2.08 m2 Ermelinda Todd LPN [facility] Work Phone: 08-14-2016 13:14-0400 Height 172.72 cm Ermelinda Todd LPN [facility] Work Phone: 08-14-2016 13:14-0400 Weight 94.35 kg Ermelinda Todd LPN [facility] Work Phone: Procedures Date Procedure Procedure Detail Performing Clinician Start: 07-23-2016 End: 08-07-2016 DJN Shreyas Parikh MD Work Phone: Start: 07-23-2016 End: 08-07-2016 Follow Up Appt 6 months Shreyas Parikh MD Work Phone: Start: 07-23-2016 End: 07-23-2016 Follow Up BP Check Shreyas Parikh MD Work Phone: Start: 07-23-2016 End: 07-26-2016 Lipid 1996 panel - Serum or Plasma Shreyas Parikh MD Work Phone: Start: 01-10-2016 End: 01-10-2016 MARIA ELENA Parikh MD Work Phone: Start: 01-10-2016 End: 01-10-2016 Follow Up Appt 6 months Shreyas Parikh MD Work Phone: Start: 12-28-2015 End: 07-16-2016 *Hepatic Function Panel Shreyas Parikh MD Work Phone: Start: 12-28-2015 End: 07-16-2016 Lipid 1996 panel - Serum or Plasma Shreyas Parikh MD Work Phone: Start: 07-04-2015 End: 07-04-2015 MARIA ELENA Parikh MD Work Phone: Start: 07-04-2015 End: 07-04-2015 Follow Up Appt 6 months Shreyas Parikh MD Work Phone: Start: 06-15-2015 End: 06-28-2015 *Hepatic Function Panel Shreyas Parikh MD Work Phone: Start: 06-15-2015 End: 06-28-2015 Lipid 1996 panel - Serum or Plasma Shreyas Parikh MD Work Phone: Start: 12-07-2014 End: 12-14-2014 *Hepatic Function Panel Shreyas Parikh MD Work Phone: Start: 12-07-2014 End: 12-07-2014 Cardiac Rehab Shreyas Parikh MD Work Phone: Start: 12-07-2014 End: 12-07-2014 MARIA ELENA Parikh MD Work Phone: Start: 12-07-2014 End: 12-08-2014 Documentation of current medications Shreyas Parikh MD Work Phone: Start: 12-07-2014 End: 12-07-2014 Follow Up Appt 6 months Shreyas Parikh MD Work Phone: Start: 12-07-2014 End: 12-14-2014 Lipid 1996 panel - Serum or Plasma Shreyas Parikh MD Work Phone: Plan of Treatment Date Care Activity Detail Author Start: 02-21-2017 End: 02-21-2017 Appointment Appointment [facility] Work Phone: Start: 01-25-2017 End: 08-09-2016 *Hepatic Function Panel *Hepatic Function Panel [facility] Work Phone: Start: 01-25-2017 End: 08-09-2016 Lipid panel [AGGREGATE] *Lipid Profile CC PCP [facility] Work Phone: Start: 01-04-2017 End: 01-04-2017 Appointment Appointment [facility] Work Phone: Start: 08-14-2016 End: 08-14-2016 Colonoscopy flx dx w/collj spec when pfrmd Colonoscopy [facility] Work Phone: Start: 07-23-2016 End: 07-23-2016 *Hepatic Function Panel *Hepatic Function Panel [facility] Work Phone: Start: 07-23-2016 End: 08-07-2016 MARIA ELENA ARREDONDO [facility] Work Phone: Start: 07-23-2016 End: 08-07-2016 Follow Up Appt 6 months Follow Up Appt 6 months [facility] Work Phone: Start: 07-23-2016 End: 07-23-2016 Follow Up BP Check Follow Up BP Check [facility] Work Phone: Start: 07-23-2016 End: 07-26-2016 Lipid panel [AGGREGATE] *Lipid Profile CC PCP [facility] Work Phone: Start: 01-10-2016 End: 01-10-2016 MARIA ELENA ARREDONDO [facility] Work Phone: Start: 01-10-2016 End: 01-10-2016 Follow Up Appt 6 months Follow Up Appt 6 months [facility] Work Phone: Start: 12-28-2015 End: 07-16-2016 *Hepatic Function Panel *Hepatic Function Panel [facility] Work Phone: Start: 12-28-2015 End: 07-16-2016 Lipid panel [AGGREGATE] *Lipid Profile CC PCP [facility] Work Phone: Start: 07-04-2015 End: 07-04-2015 DJN DJN [facility] Work Phone: Start: 07-04-2015 End: 07-04-2015 Follow Up Appt 6 months Follow Up Appt 6 months [facility] Work Phone: Start: 06-15-2015 End: 06-28-2015 *Hepatic Function Panel *Hepatic Function Panel [facility] Work Phone: Start: 06-15-2015 End: 06-28-2015 Lipid panel [AGGREGATE] *Lipid Profile CC PCP [facility] Work Phone: Start: 12-07-2014 End: 12-14-2014 *Hepatic Function Panel *Hepatic Function Panel [facility] Work Phone: Start: 12-07-2014 End: 12-07-2014 Cardiac Rehab Cardiac Rehab [address] [facility] [place], [address] [facility] Work Phone: Start: 12-07-2014 End: 12-07-2014 DJN DJN [facility] Work Phone: Start: 12-07-2014 End: 12-07-2014 Follow Up Appt 6 months Follow Up Appt 6 months [facility] Work Phone: Start: 12-07-2014 End: 12-14-2014 Lipid panel [AGGREGATE] *Lipid Profile CC PCP [facility] Work Phone: Patient Education [facility] Work Phone: Additional Source Comments FOR RECORDS PERTAINING TO PATIENTS WHO ARE OR HAVE BEEN ENROLLED IN A CHEMICAL DEPENDENCY/SUBSTANCEABUSE PROGRAM, SOME INFORMATION MAY BE OMITTED. This clinical summary was aggregated from multiple sources. Caution should be exercised in using it in the provision of clinical care. This summary normalizes information from multiple sources, and as a consequence, information in this document may materially change the coding, format and clinical context of patient data. In addition, data may be omitted in some cases. CLINICAL DECISIONS SHOULD BE BASED ON THE PRIMARY CLINICAL RECORDS. [facility] [employer] [facility]. provides no warranty or guarantee of the accuracy or completeness of information in this document.
== END | disposition home or self-care (01) ==
LOC: OPBI 10:11
PROVIDERS: PCP Family Medicine; Referring Provider Obstetrics & Gynecology; Visit Provider Obstetrics & Gynecology
DX: Z12.31 Encounter for screening mammogram for malignant neoplasm of breast (principal)
CPT/HCPCS: 77063; 77067

== ENCOUNTER → 2024-01-08 | Outpatient (CLI) | payer OTHER, SELFPAY ==
[2024-01-08 15:08] LABS: Absolute Lymphocyte Count 1.58 X10^3/uL (0.83-4.51); Absolute Neutrophil Count 2.9 X10^3/uL (2.0-7.7); Basophil# 0.03 X10^3/uL; Basophil% 0.6 % (0-1); Eosinophil# 0.12 X10^3/uL; Eosinophils% 2.4 % (0-5); Hematocrit 40.7 % (37-47); Hemoglobin 13.1 g/dL (12.0-15.0); Lymphocyte # 1.58 X10^3/ul (0.83-4.51); Lymphocyte % 31.3 % (19-41); Mean Corp Hgb Conc 32.2 g/dL (32-36); Mean Corpuscular Hgb 29.6 pg (27.0-32.0); Mean Corpuscular Volume 92.1 fL (81-99); Mean Platelet Vol. 11.5 fl (6.2-12.0); Monocyte# 0.44 X10^3/uL; Monocyte% 8.7 % (0-10); NRBC Flagged by Analyzer 0 % (0-5); Neutrophil # 2.87 X10^3/uL (2.7-7.7); Neutrophil % 56.8 % (47-70); Platelet Count 302 K/mm3 (150-450); RBC Distribution Width CV 12.7 % (11.6-14.6); RBC Distribution Width SD 43.2 fl (35.1-43.9); Red Blood Count 4.42 M/mm3 (4.2-5.4); White Blood Count 5.1 K/mm3 (4.4-11.0)
[2024-01-08 15:25] LABS: Vitamin D,25 Hydroxy 33.1 ng/mL
[2024-01-08 15:36] LABS: ALB/GLOB Ratio 1.1 RATIO (0.9-2.4); AST(SGOT) 19 U/L (15-37); Alanine Aminotransfer ALT/SGPT 26 U/L (13-56); Albumin, Serum 3.6 g/dL (3.2-5.0); Alkaline Phosphatase 112 U/L (45-117); Anion Gap 6 (5-15); BUN 10 mg/dL (7-18); BUN/Creat Ratio 13.7 RATIO (10-20); Chloride 110 mmol/L (98-107); Cholesterol 159 mg/dL (200); Creatinine, Serum 0.73 mg/dL (0.55-1.02); EST Glomerular Filtration Rate 86 mL/min (>60); Est Glom Filt Rate - Afr Amer 105 mL/min (>60); Globulin 3.4 g/dL (2.2-4.2); Glucose 93 mg/dL (74-106); High Density Lipoprotein 62 mg/dL; Potassium 4.2 mmol/L (3.5-5.1); Sodium Level 140 mmol/L (136-145); Triglycerides 157 mg/dL; Very Low Density Lipoprotein 31 mg/dL (5-40)
== END | disposition home or self-care (01) ==
LOC: MFPLAB 11:15
PROVIDERS: PCP Family Medicine; Referring Provider Family Medicine; Visit Provider Family Medicine
DX: I25.10 Atherosclerotic heart disease of native coronary artery without angina pectoris (principal); E55.9 Vitamin D deficiency, unspecified
CPT/HCPCS: 36415; 80053; 80061; 82306; 85025

== ENCOUNTER → 2025-01-14 | Outpatient (CLI) | payer OTHER, SELFPAY ==
[2025-01-14 12:22] LABS: Hematocrit 39.4 % (37-47); Hemoglobin 13.0 g/dL (12.0-15.0); Immature Granulocytes Count 0.010 X10^3/uL (0.0-0.0); Mean Corp Hgb Conc 33.0 g/dL (32-36); Mean Corpuscular Volume 90.6 fL (81-99); Mean Platelet Vol. 11.2 fl (6.2-12.0); NRBC Flagged by Analyzer 0 % (0-5); Platelet Count 293 K/mm3 (150-450); RBC Distribution Width CV 12.7 % (11.6-14.6); RBC Distribution Width SD 41.9 fl (35.1-43.9); Red Blood Count 4.35 M/mm3 (4.2-5.4); White Blood Count 5.0 K/mm3 (4.4-11.0)
[2025-01-14 13:02] LABS: AST(SGOT) 20 U/L (<=31); Alanine Aminotransfer ALT/SGPT 20 U/L (<=34); Albumin, Serum 4.1 g/dL (3.4-4.8); Alkaline Phosphatase 88 U/L (35-104); Anion Gap 9 (5-15); BUN 12 mg/dL (4-19); BUN/Creat Ratio 14.9 RATIO (10-20); Calcium,Total 9.5 mg/dL (7.6-11.0); Carbon Dioxide 26.6 mmol/L (21.0-32.0); Chloride 107 mmol/L (98-108); Cholesterol 158 mg/dL (<=200); Globulin 2.5 g/dL (2.2-4.2); Glucose 95 mg/dL (70-99); Low Density Lipoprotein Calc. 81 mg/dL; Potassium 4.2 mmol/L (3.3-5.1); Triglycerides 102 mg/dL; Very Low Density Lipoprotein 20 mg/dL (5-40); Vitamin D,25 Hydroxy 56.2 ng/mL (30-100); cholesterol:hdl ratio screen 2.68
== END | disposition home or self-care (01) ==
LOC: MFPLAB 11:02
PROVIDERS: PCP Family Medicine; Visit Provider Family Medicine
DX: I25.10 Atherosclerotic heart disease of native coronary artery without angina pectoris (principal); E55.9 Vitamin D deficiency, unspecified
CPT/HCPCS: 36415; 80053; 80061; 82306; 85025